=== PATIENT | female | born 2000 | race Caucasian/White ===

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

== ENCOUNTER → 2022-02-07 09:40 | Outpatient (CLI) | payer OTHER, SELFPAY ==
[2022-02-07 10:08] LABS: Glucose,Fasting 89 mg/dl (74-100)
[2022-02-07 11:39] LABS: Glucose 1 Hour 131 mg/dL (74-100)
== END ==
PROVIDERS: Visit Provider Nurse Practitioner Obstetrics & Gynecology
DX: Z34.90 Encounter for supervision of normal pregnancy, unspecified, unspecified trimester (principal)
CPT/HCPCS: 36415; 82951

== ENCOUNTER → 2022-04-16 13:02 | Outpatient (CLI) | payer OTHER, SELFPAY ==
--- NOTE | 2022-04-16 13:04 | US_ITS ---
FINAL REPORT CLINICAL HISTORY: BPP FINDINGS: TRANSABDOMINAL ULTRASOUND There is a single live intrauterine gestation. Presentation is vertex. The cervix is not well visualized but estimated at 3.1 cm in length. Placenta is posterior. Cardiac activity is confirmed at 136 bpm. Fetus is active and practice breathing is seen. BIJAN: 11.7 cm MEASUREMENTS: ULTRASOUND AGE: 34 weeks 2 days. GESTATION AGE: 36 weeks 3 days. ESTIMATED WEIGHT: 2556 g GROWTH PERCENTILE: 17% based on LMP and 65% based on AUA BPD: 8.2 cm corresponding with 32 weeks 6 days. OFD: 10.7 cm corresponding with 33 weeks 6 days. HC: 29.8 cm corresponding with 33 weeks 0 days. AC: 31.8 cm corresponding with 35 weeks 5 days. FL: 6.9 cm corresponding with 35 weeks 2 days. HC/AC: 0.94 CI: 77% FL/BPD: 84% FL/AC: 22% BREATHIN/2 MOVEMENT: 2/2 TONE: 2/2 FLUID VOLUME: 2/2 BPP SCORE: 8/8 IMPRESSION: 1. BPP SCORE: 8/8. 2. BIJAN 11.7 cm. 3. Limited evaluation of the cervix. Consider transvaginal imaging if an accurate measurement of the cervix is needed. Reviewed, Interpreted and Dictated by Jade Carey MD Transcribed by Rafaela Francisco Authenticated and . [facility]
== END ==
PROVIDERS: PCP Nurse Practitioner Family; Visit Provider Nurse Practitioner Obstetrics & Gynecology
DX: O36.5990 Maternal care for other known or suspected poor fetal growth, unspecified trimester, not applicable or unspecified (principal)
CPT/HCPCS: 76811; 76819; 76820; 86403

== ENCOUNTER → 2022-04-16 16:37 | Outpatient (CLI) | payer OTHER, SELFPAY | PROVIDERS: Visit Provider Nurse Practitioner Obstetrics & Gynecology | DX: Z34.90 Encounter for supervision of normal pregnancy, unspecified, unspecified trimester (principal) ==

== ENCOUNTER → 2022-05-03 10:23 | Outpatient (CLI) | payer OTHER, SELFPAY ==
[2022-05-03 11:28] LABS: Basophils # 0.1 K/mm3 (0-0.2); Basophils % 0.4 % (0.1-2.0); Eosinophils # 0.1 K/mm3 (0.0-0.4); Eosinophils % 0.8 % (0.1-12.0); Hematocrit 39.2 % (37.0-47.0); Hemoglobin 12.6 g/dL (12.2-16.2); Lymphocytes # 2.3 K/mm3 (0.7-4.5); Lymphocytes % 20.7 % (10-50); Mean Corpuscular HGB Conc 32.2 g/dL (31.8-35.4); Mean Corpuscular Hemoglobin 29.2 pg (27.0-31.2); Mean Corpuscular Volume 90.6 fl (81-99); Monocytes # 0.4 K/mm3 (0.1-1.0); Monocytes % 3.3 % (1.7-9.3); Neutrophils # 8.5 K/mm3 (1.8-7.8); Neutrophils % 74.8 % (37.0-80.0); Platelet Count 186 K/mm3 (142-424); Red Blood Count 4.33 M/mm3 (4.20-5.40); White Blood Count 11.3 K/mm3 (4.5-13.0)
[2022-05-03 11:41] LABS: Alanine Aminotransferase 12 U/L (12-78); Albumin Level 3.3 g/dl (3.5-5.0); Albumin/Globulin Ratio 1.4 (1.1-1.8); Alkaline Phosphatase 213 U/L (38-126); Aspartate Amino Transferase 21 U/L (14-36); Blood Urea Nitrogen 7 mg/dl (7-17); Calcium 9.1 mg/dl (8.4-10.2); Carbon Dioxide 24 mmol/L (22.0-30.0); Chloride 108 mmol/L (98-107); Estimated Glomerular Filt Rate 127 ml/min (>60); GFR (African American) 154 ML/MIN (>60); Globulin 2.4 g/dL (1.3-3.2); Glucose 92 mg/dl (74-100); Sodium 136 mmol/L (136-145); Total Protein,Serum 5.7 g/dl (6.3-8.2)
[2022-05-03 11:51] LABS: Bilirubin,Total < 0.1 mg/dl (0.2-1.3)
== END ==
PROVIDERS: PCP Nurse Practitioner Family; Visit Provider Nurse Practitioner Obstetrics & Gynecology
DX: Z34.90 Encounter for supervision of normal pregnancy, unspecified, unspecified trimester (principal); N92.0 Excessive and frequent menstruation with regular cycle
CPT/HCPCS: 36415; 80053; 85025; C9803; U0003; U0005

== ENCOUNTER 2022-05-05 04:44 | Inpatient (IN) | payer OTHER, SELFPAY ==
[2022-05-05] VITALS (14 sets, daily range): BP systolic 98–129; BP diastolic 40–80; PULSE 78–150; RESP 16–18; TEMP 36.3–36.8; O2SAT 98–100; BMI 33.1
[2022-05-05 05:34] LABS: Basophils # 0.1 K/mm3 (0-0.2); Basophils % 0.8 % (0.1-2.0); Eosinophils # 0.1 K/mm3 (0.0-0.4); Eosinophils % 1.1 % (0.1-12.0); Hematocrit 37.1 % (37.0-47.0); Hemoglobin 12.3 g/dL (12.2-16.2); Lymphocytes # 3.2 K/mm3 (0.7-4.5); Lymphocytes % 25.5 % (10-50); Mean Corpuscular HGB Conc 33.2 g/dL (31.8-35.4); Mean Corpuscular Hemoglobin 28.5 pg (27.0-31.2); Mean Corpuscular Volume 85.9 fl (81-99); Mean Platelet Volume 10.5 fl (7.4-10.4); Monocytes # 0.4 K/mm3 (0.1-1.0); Monocytes % 3.3 % (1.7-9.3); Neutrophils # 8.7 K/mm3 (1.8-7.8); Neutrophils % 69.3 % (37.0-80.0); Platelet Count 199 K/mm3 (142-424); Red Blood Count 4.32 M/mm3 (4.20-5.40); Red Cell Distribution Width 14.9 % (11.5-17.5); White Blood Count 12.6 K/mm3 (4.5-13.0)
[2022-05-05 05:35] LABS: Coronavirus 19, PCR Not Detected (NotDetected); Influenza A, PCR Not Detected (NotDetected); Influenza B, PCR Not Detected (NotDetected)
[2022-05-05 05:35] LABS: Microscopic, Urine URINE MICROSCOPIC (MICROSCOPIC)
[2022-05-05 05:45] LABS: Anion Gap 8.9 mEq/L (5-15); Blood Urea Nitrogen 9 mg/dl (7-17); Calcium 8.7 mg/dl (8.4-10.2); Carbon Dioxide 21 mmol/L (22.0-30.0); Chloride 109 mmol/L (98-107); Creatinine Clearance Estimated 176 mL/min (50-200); Estimated Glomerular Filt Rate 127 ml/min (>60); GFR (African American) 154 ML/MIN (>60); Glucose 81 mg/dl (74-100); Potassium 3.9 mmoL/L (3.5-5.1); Sodium 135 mmol/L (136-145)
[2022-05-05 05:55] LABS: Amphetamine/Metha Screen,Urine Negative ng/ml (<1000); Barbiturates Screen,Urine Negative ng/ml (<200); Benzodiazepines Screen,Urine Negative ng/ml (<200); Cannabinoid Screen,Urine Negative ng/ml (<50); Cocaine Screen,Urine Negative ng/ml (<300); Methadone Screen,Urine Negative ng/ml (<300); Opiate Screen,Urine Negative ng/ml (<300); Phencyclidine Screen,Urine Negative ng/ml (<25)
[2022-05-05 06:03] LABS: Appearance,Urine CLEAR (Clear); Bilirubin,Urine Negative (Negative); Blood, Urine Negative (Negative); Color,Urine YELLOW (Yellow); Glucose,Urine (UA) Negative (Negative); Ketones,Urine Negative (Negative); Leukocyte Esterase,Urine 1+ (Negative); Nitrate,Urine Negative (Negative); PH,Urine 6.5 (5.0-8.5); Protein,Urine Negative (Negative); Urobilinogen,Urine 0.2 EU/dl (0.2)
[2022-05-05 06:08] LABS: WBC,Urine 20-50 #/hpf (0-3)
--- NOTE | 2022-05-05 07:15 | HMH.ANESCL ---
[facility] Anesthesia Checklist - Patient Identification Patient Identification: Arm Band - Structural Data Admitted From: Home Planned Operative Procedure/s: Repeat C/S Consent for Planned Operative Procedure(s) Verified: Yes Verified Documents: Surgical Consent, History and Physical - Additional verifications Anesthesia Reactions: No - Airway Assessment C-Spine Mobility Assessed: Yes TMJ Mobility Assessed: Yes Dentition: Poor Dentition - Neurological Assessment Level of Consciousness: Awake, Alert - Anesthesia Plan Anesthesia Risk discussed: Yes Anesthesia Plan: Verified ASA Class: II Anesthesia Type: Spinal (with Bilateral TAP Block) [facility] History I have reviewed the patient's past medical history: Yes *Have you ever received a pneumonia vaccine?: No *Have you received a flu vaccine this season?: No Anesthesia experience/problems:: nac Other Surgeries: Yes: Amputation: No Fractures: No - *Social History Smoking Status: Never smoker Alcohol Intake: never Alcohol Intake Frequency:: other Substance Use Type: denies use *Occupational Status:: unemployed Housing: house Household Members: family *Travel in the last 8 weeks: None Family Hx:: No significant family history Para: 1
--- NOTE | 2022-05-05 07:27 | HMH.PHAINT ---
MEDICATION RECONCILIATION COMPLETED ON PATIENT USING EXTERNAL FILL HISTORY FROM PHARMACY. -HARJIT PATEL, [place]
--- NOTE | 2022-05-05 08:30 | HMH.OPNOTE ---
Date of procedure: 05/05/22 Pre-op Diagnosis:: Term , previous section, Post-op Diagnosis:: Term , previous section, left hydatid of morganii Procedure performed:: Repeat lower segment transverse section Surgeon:: Sesar Cardona MD Clay Mixer(s):: Dr. RUIZ MAILING MANAGER:: Other (Kevon Quinonez) Anesthesia: spinal Estimated blood loss (mL): 400 Clinical Note:: She is a 22-year-old 2 para 1 at 39 weeks gestational age. She had a previous section and I was a result of that was offered repeat lower segment transverse section at term. The risks and benefits of surgery were discussed with the patient prior to surgery. Operative findings:: She delivered a liveborn female child at 7:52 AM on the morning of May 05, 2022. The Apgars were 9 at 1 minute and 9 at 5 minutes. The baby weighed 7 pounds 7 ounces. Ovaries appeared normal on the left tube there was a 2 cm long oval-shaped hydatid of morganii near the distal end. The rest of the pelvis appeared normal. Operative note:: She was taken to the operating room where spinal anesthesia was found be adequate. She was prepped and draped in normal sterile fashion in the supine position with a leftward tilt. A [place] catheter was in the bladder. A Pfannenstiel skin incision was made with knife then carried through to the underlying layer of fascia with cautery. The fascia was opened in the midline with cautery and extended laterally using Garcia scissors. [place] clamps were applied to the superior aspect of the fascial incision which was tented up and the underlying rectus muscles dissected off using cautery. The [place] clamps were then applied to the inferior aspect of the fascial incision which in a similar fashion was tented up and the underlying rectus muscles dissected off using cautery. The rectus muscles were then in the midline, the peritoneum identified, and entered sharply with Metzenbaum scissors. This incision was then extended superiorly and inferiorly with cautery. We had good visualization of the bladder inferiorly. The bladder peritoneum was then opened in the midline and extended laterally using Metzenbaum scissors. An Arnie retractor was then inserted into the abdominal cavity. A bladder flap was created digitally. Transverse incision was made through the uterine muscle to the amnion. This incision was then extended laterally using fingers traction. The amnion was entered sharply with knife. There was clear amniotic fluid. The 's head was then delivered atraumatically. This was followed by the anterior shoulder and the rest of the 's body atraumatically. The oropharynx and nasopharynx were bulb suctioned. The baby was vigorous so we allowed the cord to continue to pulsate for approximately 1 minute. The cord was then doubly clamped and cut. The infant was then handed off to Dr. Whelan who assigned Apgars of 9 at 1 minute and 9 at 5 minutes. We then obtained cord blood. Using gentle traction on the cord and countertraction on the fundus I was able to easily deliver the placenta intact. It had a normal three-vessel cord. The uterus was then cleared of clots and debris . There was a small downward tear on the left side of the incision and I elected to close this first with running locked Vicryl suture. The uterine incision was then closed using running 0 Vicryl suture in a locked fashion. A second layer of the same suture was used to imbricate the first layer. The bladder peritoneum was then closed using running 2-0 Vicryl suture in a locked fashion. I placed half a piece of Gelf[place]am in the left lower quadrant into the bladder peritoneum. The gutters and cul-de-sac were then cleared of clots and debris . Once again hemostasis was assured. The Arnie retractor was then removed from the abdominal cavity. Once again hemostasis was assured. The peritoneum was grasped with Sandra clamps and closed using runn
--- NOTE | 2022-05-05 08:39 | HMH.OBAPHP ---
OB - H&P: HPI Antepartum - History of Present Illness Chief complaint: Term , previous section History of present illness: She is a 22-year-old 1 para 0 at 39 weeks gestational age. She is had a previous section and as result of that was offered repeat lower segment transverse section at term. The risks and benefits of surgery were discussed with the patient prior to surgery. - History of Present Criteria for establishing EDC:: LMP confirmed by 1st trimester US care: good care Ultrasounds: normal 1st trimester US, normal mid trimester US Obstetrical complications: none, previous Medical complications: none - Labs Blood type: O (+) positive Rubella: immune RPR/VDRL: nonreactive GBS status: negative HBsAG: negative [facility] History I have reviewed the patient's past medical history: Yes *Have you ever received a pneumonia vaccine?: No *Have you received a flu vaccine this season?: No Anesthesia experience/problems:: nac Other Surgeries: Yes: No Previous Surgery, Amputation: No Fractures: No - *Social History Smoking Status: Never smoker Alcohol Intake: never Alcohol Intake Frequency:: other Substance Use Type: denies use *Occupational Status:: unemployed Housing: house Household Members: family *Travel in the last 8 weeks: None Family Hx:: No significant family history Para: 1 Review of Systems - Review of Systems Review of systems:: pertinent systems reviewed and negative unless documented below Meds Home Medications Medication Instructions Recorded Confirmed Type pediatric multivitamin no.7-folic 100 mcg PO DAILY 09/20/21 05/05/22 History acid 100 mcg chewable tablet Ferrous Sulfate 325 mg PO DAILY 05/05/22 05/05/22 History Allergies Allergy/AdvReac Type Severity Reaction Status Date / Time pineapple Allergy Verified 04/30/22 13:05 OB - H&P: Exam - Physical Exam Vital signs: Temp Pulse Resp BP Pulse Ox 98.0 F 78 17 120/68 99 05/05/22 05:05 05/05/22 05:05 05/05/22 05:05 05/05/22 05:05 05/05/22 05:05 - Constitutional no acute distress - Routine HEENT Exam Head: Present: normocephalic Eye: Present: EOMI, PERRL ENT: Present: mucous membranes moist - Routine Neck Exam Present: supple, full ROM - Routine Respiratory Exam Absent: accessory muscle use (good air entry bilaterally), respiratory distress, wheezes, crackles - Routine Cardiovascular Exam Present: RRR. Absent: murmur - Routine Abdominal Exam Present: soft, normoactive bowel sounds. Absent: tenderness, distended, guarding - Routine Rectal Exam Patient deferred: visual exam, digital exam - Routine Exam Patient deferred: external exam, groin exam, perineal exam - Routine Extremities Exam Present: full ROM. Absent: cyanosis, edema - Routine Skin Exam Present: intact. Absent: cyanosis - Routine Neurological Exam Present: alert, oriented X3 - Routine Psychiatric Exam Present: normal affect OB - Results - Labs Labs: Short CBC 05/05/22 Range/Units 05:25 WBC 12.6 (4.5-13.0) K/mm3 Hgb 12.3 (12.2-16.2) g/dL Hct 37.1 (37.0-47.0) % Plt Count 199 (142-424) K/mm3 BMP 05/05/22 05:25 Sodium 135 L Potassium 3.9 D Chloride 109 H Carbon Dioxide 21 L BUN 9 D Creatinine 0.60 Glucose 81 Calcium 8.7 Urine 05/05/22 Range/Units 05:20 Urine Color Yellow (Yellow) Urine Appearance Clear (Clear) Urine pH 6.5 (5.0-8.5) Ur Specific [place] 1.010 (1.005-1.030) Urine Protein Negative (Negative) Urine Glucose (UA) Negative (Negative) OB - A/P Antepartum (1) Delivery by section of full-term Status: Acute (2) History of Status: Chronic - Additional Plan Planning to breastfeed?: No Plan: other Additional Information:: She is admitted at term for a repeat lower segment transverse cesa
--- NOTE | 2022-05-05 08:40 | P.PN_ITS ---
[facility] Anesthesia Record Part I Intake, IV Amount: 1,000 Estimated blood loss (mL): 400 Urine output (mL): 150 Blood Pressure: 104/80 SaO2: 99 Pulse Rate: 137 Respiratory Rate: 16 Temperature: 97.3 F Patient is:: Awake Stable to PACU at:: 08:33
--- NOTE | 2022-05-05 09:35 | HMH.ACPN2 ---
Internal Medicine - PN: Subj *Date: 05/05/22 *Time: 09:35 Interval history: Noted that she is quite tachycardic in the recovery room. She dropped her blood pressure to 98/50. She passed a couple of large clots. Approximately 500 cc of blood loss. I examined the patient and there was blood clots in the uterus. I removed all the clots from the uterus. I inserted a EVELYNE RI balloon with 120 cc of saline. This seemed to stop her bleeding. She also received Methergine and we will continue with the IV oxytocin. She is hemodynamically stable at this point in time and we will continue with the oxytocin for the next 24 hours. We will keep the balloon device in the uterus for the next 24 hours as well. We will monitor her blood loss. She has a stat H&H as well as a second IV started. Exam Vital signs and Labs for Last 24 Hours: Temp Pulse Resp BP Pulse Ox 97.3 F L 137 H 16 104/80 L 99 05/05/22 08:40 05/05/22 08:40 05/05/22 08:40 05/05/22 08:40 05/05/22 05:05 Laboratory Results - last 24 hr 05/05/22 05:20: Urine Color Yellow, Urine Appearance Clear, Urine pH 6.5, Ur Specific [place] 1.010, Urine Protein Negative, Urine Glucose (UA) Negative, Urine Ketones Negative, Urine Blood Negative, Urine Nitrate Negative, Urine Bilirubin Negative, Urine Urobilinogen 0.2, Ur Leukocyte Esterase 1+ A, Urine WBC 20-50, Ur Squamous Epith Cells 10-20 05/05/22 05:20: Urine Opiates Screen Negative, Urine Methadone Screen Negative, Ur Barbituates Screen Negative, Ur Phencyclidine Scrn Negative, Ur Amphetamines Screen Negative, U Benzodiazepines Scrn Negative, Urine Cocaine Screen Negative, U Marijuana (THC) Screen Negative 05/05/22 05:25: WBC 12.6, RBC 4.32, Hgb 12.3, Hct 37.1, MCV 85.9, MCH 28.5, MCHC 33.2, RDW 14.9, Plt Count 199, MPV 10.5 H, Neut % (Auto) 69.3, Lymph % (Auto) 25.5, [place] % (Auto) 3.3, Eos % (Auto) 1.1, Baso % (Auto) 0.8, Neut # (Auto) 8.7 H, Lymph # (Auto) 3.2, [place] # (Auto) 0.4, Eos # (Auto) 0.1, Baso # (Auto) 0.1 05/05/22 05:25: Sodium 135 L, Potassium 3.9 D, Chloride 109 H, Carbon Dioxide 21 L, Anion Gap 8.9, BUN 9 D, Creatinine 0.60, Estimated Creat Clear 176, Estimated GFR 127, Est GFR ( Amer) 154, Glucose 81, Calcium 8.7 05/05/22 05:25: SARS-CoV-2 (PCR) Not detected, Influenza A Untype (PCR) Not detected, Influenza Type B (PCR) Not detected 05/05/22 05:25: Blood Type O Positive, Antibody Screen Negative I & O for Last 24 hours: Intake & Output 05/02/22 05/03/22 05/04/22 05/05/22 11:59 11:59 11:59 11:59 Intake Total 1000 / 1000 Balance 1000 / 1000 Weight 164 lb - Constitutional no acute distress Assessment and Plan (1) Delivery by section of full-term Status: Acute Category: Medical Code(s): O82 - Encounter for delivery without indication (2) History of Status: Chronic Category: Surgical Code(s): Z98.891 - History of uterine scar from previous surgery (3) hemorrhage Status: Acute Category: Medical Code(s): O72.1 - Other immediate hemorrhage - Assessment and plan all Dx Assessment and Plan for all problems:: After evacuating the clots from the uterus the uterus is now well contracted. I have inserted a balloon catheter into the uterus. We will continue to monitor her blood loss but the vaginal bleeding has significantly settled. She did receive Methergine and will continue to receive IV oxytocin. We will leave the balloon catheter in until tomorrow. We will continue to watch her vital signs as well as her blood loss closely. Interestingly at the end of the case when I pressed on her uterus there was no vaginal bleeding at all. She is hemodynamically stable now. Blood pressures are normal. Heart rate is still elevated but it was elevated throughout the entire case.
[2022-05-05 09:37] LABS: Hematocrit 37.5 % (37.0-47.0); Hemoglobin 12.3 g/dL (12.2-16.2)
--- NOTE | 2022-05-05 09:43 | PC.NURSE ---
[id number] at bedside, manually evacuating clots, jerrell inserted per
--- NOTE | 2022-05-05 10:00 | SUR.PHASEI ---
1000-spoke to Dr Cardona via phone to update him on pt. Pt resting, VSS at this time. HR 101, BP 125/94, Bakri still in place, bleeding at this time scant to small with no large clots
--- NOTE | 2022-05-05 11:30 | HMH.ACPN2 ---
Internal Medicine - PN: Subj *Date: 05/05/22 *Time: 11:30 Interval history: She continues to have vaginal bleeding. I replaced her back really and despite this she continued to bleed around the battery. She continues to trickle a small amount. I had increased the amount of fluid in the bakri to 240 cc and yet still she was trickling. There is about 400 cc of blood in the BAKRI bag. As result of this we elected to take her back to the operating room and check her bleeding. I will do a B glass suture as well as reopen her incision in the uterus and see if there is any internal bleeding within the uterine cavity. Exam Vital signs and Labs for Last 24 Hours: Temp Pulse Resp BP Pulse Ox 97.3 F L 121 H 16 129/66 100 05/05/22 08:40 05/05/22 08:43 05/05/22 08:43 05/05/22 08:43 05/05/22 08:43 Laboratory Results - last 24 hr 05/05/22 05:20: Urine Color Yellow, Urine Appearance Clear, Urine pH 6.5, Ur Specific [place] 1.010, Urine Protein Negative, Urine Glucose (UA) Negative, Urine Ketones Negative, Urine Blood Negative, Urine Nitrate Negative, Urine Bilirubin Negative, Urine Urobilinogen 0.2, Ur Leukocyte Esterase 1+ A, Urine WBC 20-50, Ur Squamous Epith Cells 10-20 05/05/22 05:20: Urine Opiates Screen Negative, Urine Methadone Screen Negative, Ur Barbituates Screen Negative, Ur Phencyclidine Scrn Negative, Ur Amphetamines Screen Negative, U Benzodiazepines Scrn Negative, Urine Cocaine Screen Negative, U Marijuana (THC) Screen Negative 05/05/22 05:25: WBC 12.6, RBC 4.32, Hgb 12.3, Hct 37.1, MCV 85.9, MCH 28.5, MCHC 33.2, RDW 14.9, Plt Count 199, MPV 10.5 H, Neut % (Auto) 69.3, Lymph % (Auto) 25.5, [place] % (Auto) 3.3, Eos % (Auto) 1.1, Baso % (Auto) 0.8, Neut # (Auto) 8.7 H, Lymph # (Auto) 3.2, [place] # (Auto) 0.4, Eos # (Auto) 0.1, Baso # (Auto) 0.1 05/05/22 05:25: Sodium 135 L, Potassium 3.9 D, Chloride 109 H, Carbon Dioxide 21 L, Anion Gap 8.9, BUN 9 D, Creatinine 0.60, Estimated Creat Clear 176, Estimated GFR 127, Est GFR ( Amer) 154, Glucose 81, Calcium 8.7 05/05/22 05:25: SARS-CoV-2 (PCR) Not detected, Influenza A Untype (PCR) Not detected, Influenza Type B (PCR) Not detected 05/05/22 05:25: Blood Type O Positive, Antibody Screen Negative, Crossmatch (AHG) See Detail 05/05/22 09:30: Hgb 12.3, Hct 37.5 I & O for Last 24 hours: Intake & Output 05/02/22 05/03/22 05/04/22 05/05/22 11:59 11:59 11:59 11:59 Intake Total 1000 / 1000 Balance 1000 / 1000 Weight 164 lb - Constitutional no acute distress - *Routine HEENT Exam Head: Present: normocephalic Eye: Present: EOMI, PERRL ENT: Present: mucous membranes moist Assessment and Plan (1) Delivery by section of full-term infant Status: Acute Category: Medical Code(s): O82 - Encounter for delivery without indication (2) History of Status: Chronic Category: Surgical Code(s): Z98.891 - History of uterine scar from previous surgery (3) hemorrhage Status: Acute Category: Medical Code(s): O72.1 - Other immediate hemorrhage - Assessment and plan all Dx Assessment and Plan for all problems:: She continues to have bleeding postoperatively from the vagina. The incision is clean and dry. There is no evidence of internal bleeding since her belly is not distended in any way. She continues to have good urine output. Despite receiving IV oxytocin, Methergine and a balloon catheter within the uterine cavity she continues to have bleeding. We will go ahead and do an exploratory laparotomy. We discussed the risks of surgery that includes bleeding, infection, injury to other structures. We discussed the rare risk of hysterectomy. All questions were answered and consents were signed.
[2022-05-05 11:38] LABS: Hematocrit 33.8 % (37.0-47.0); Hemoglobin 11.6 g/dL (12.2-16.2)
--- NOTE | 2022-05-05 13:02 | HMH.ACPN2 ---
Internal Medicine - PN: Subj *Date: 05/05/22 *Time: 12:30 Interval history: I checked on her again and her bleeding seems to be significantly improved. She still has a small amount of blood with pressing on the uterus but the uterus has not gotten any bigger. It seems to be well contracted. The amount of bleeding that she has is about the size of a tennis ball on the nino. There are no clots coming out there was just a small trickle. As result of that we are continuing to observe her. She is in the preop area but at this point in time I do not want to take her back to the operating room since the bleeding has significantly improved. She has a intra uterine balloon catheter that seems to be doing well. Her last hemoglobin was 11.3 at 1130. Exam Vital signs and Labs for Last 24 Hours: Temp Pulse Resp BP Pulse Ox 97.3 F L 101 H 16 123/73 100 05/05/22 08:40 05/05/22 10:10 05/05/22 10:10 05/05/22 10:10 05/05/22 10:10 Laboratory Results - last 24 hr 05/05/22 05:20: Urine Color Yellow, Urine Appearance Clear, Urine pH 6.5, Ur Specific [place] 1.010, Urine Protein Negative, Urine Glucose (UA) Negative, Urine Ketones Negative, Urine Blood Negative, Urine Nitrate Negative, Urine Bilirubin Negative, Urine Urobilinogen 0.2, Ur Leukocyte Esterase 1+ A, Urine WBC 20-50, Ur Squamous Epith Cells 10-20 05/05/22 05:20: Urine Opiates Screen Negative, Urine Methadone Screen Negative, Ur Barbituates Screen Negative, Ur Phencyclidine Scrn Negative, Ur Amphetamines Screen Negative, U Benzodiazepines Scrn Negative, Urine Cocaine Screen Negative, U Marijuana (THC) Screen Negative 05/05/22 05:25: WBC 12.6, RBC 4.32, Hgb 12.3, Hct 37.1, MCV 85.9, MCH 28.5, MCHC 33.2, RDW 14.9, Plt Count 199, MPV 10.5 H, Neut % (Auto) 69.3, Lymph % (Auto) 25.5, [place] % (Auto) 3.3, Eos % (Auto) 1.1, Baso % (Auto) 0.8, Neut # (Auto) 8.7 H, Lymph # (Auto) 3.2, [place] # (Auto) 0.4, Eos # (Auto) 0.1, Baso # (Auto) 0.1 05/05/22 05:25: Sodium 135 L, Potassium 3.9 D, Chloride 109 H, Carbon Dioxide 21 L, Anion Gap 8.9, BUN 9 D, Creatinine 0.60, Estimated Creat Clear 176, Estimated GFR 127, Est GFR ( Amer) 154, Glucose 81, Calcium 8.7 05/05/22 05:25: SARS-CoV-2 (PCR) Not detected, Influenza A Untype (PCR) Not detected, Influenza Type B (PCR) Not detected 05/05/22 05:25: Blood Type O Positive, Antibody Screen Negative, Crossmatch (AHG) See Detail 05/05/22 09:30: Hgb 12.3, Hct 37.5 05/05/22 11:30: Hgb 11.6 L, Hct 33.8 L I & O for Last 24 hours: Intake & Output 05/03/22 05/04/22 05/05/22 05/06/22 11:59 11:59 11:59 11:59 Intake Total 1000 / 1000 Balance 1000 / 1000 Weight 164 lb - Constitutional no acute distress - *Routine HEENT Exam Head: Present: normocephalic Eye: Present: EOMI, PERRL ENT: Present: mucous membranes moist Assessment and Plan (1) Delivery by section of full-term infant Status: Acute Category: Medical Code(s): O82 - Encounter for delivery without indication (2) History of Status: Chronic Category: Surgical Code(s): Z98.891 - History of uterine scar from previous surgery (3) hemorrhage Status: Acute Category: Medical Code(s): O72.1 - Other immediate hemorrhage - Assessment and plan all Dx Assessment and Plan for all problems:: At this point in time she seems to be stable. I will check her again in about an hour to see how she is doing. Hopefully she will have any excess bleeding and we can safely send her back to labor and delivery. We will plan to keep the intrauterine catheter in place as well as a Dacosta catheter. We will continue with her antibiotics. We will continue to monitor her blood loss. We may need to transfuse her. We will check her blood counts later this afternoon as well.
--- NOTE | 2022-05-05 14:28 | P.PN_ITS ---
[facility] Anesthesia Record Part II Discharge Time: 10:10 Destination: Obstetric PACU nurse assessment reviewed?: Yes Patient Condition:: Good Anesthesia Complications:: None Swallowing reflex intact?: Yes Cyanosis?: No Blood Pressure: 123/73 Pulse Rate: 101 Temperature: 98.3 F Mental Status: Alert & Oriented Pain level:: 0 Nausea and/or vomitting:: None Intake, IV Amount: 0
[2022-05-05 15:02] LABS: Microscopic,Cath URINE MICROSCOPIC (MICROSCOPIC)
[2022-05-05 15:28] LABS: Appearance,Urine/Cath CLEAR (Clear); Bilirubin,Cath Negative (Negative); Blood, Urine/Cath Negative (Negative); Color,Urine/Cath YELLOW (Yellow); Glucose,Urine/Cath (UA) Negative (Negative); Ketones,Urine/Cath Negative (Negative); Leukocyte Esterase,Cath 1+ (Negative); Nitrate,Cath Negative (Negative); PH,Urine/Cath 6.5 (5.0-8.5); Protein,Urine/Cath Negative (Negative); Urobilinogen,Cath 0.2 EU/dl (0.2)
[2022-05-05 15:49] LABS: Bacteria,Urine/Cath TRACE /lpf
[2022-05-05 16:16] LABS: Hematocrit 33.8 % (37.0-47.0); Hemoglobin 11.2 g/dL (12.2-16.2)
[2022-05-06 04:03] VITALS: RESP 18
[2022-05-06 07:10] LABS: Hematocrit 28.7 % (37.0-47.0)
[2022-05-06 07:39] VITALS: BP 92/53; PULSE 85; RESP 17; TEMP 36.7; O2SAT 99
--- NOTE | 2022-05-06 13:37 | P.PN_ITS ---
Internal Medicine - PN: Subj *Date: 05/06/22 *Time: 08:30 Interval history: She is doing much better this morning. She still has her balloon catheter as well as Dacosta catheter. We will remove that this morning. Her hemoglobin is 9.0. She is asymptomatic. She is not bleeding heavily from below. Exam Vital signs and Labs for Last 24 Hours: Temp Pulse Resp BP Pulse Ox 98.1 F 85 17 92/53 L 99 05/06/22 07:39 05/06/22 07:39 05/06/22 07:39 05/06/22 07:39 05/06/22 07:39 Laboratory Results - last 24 hr 05/05/22 07:38: Urine Color Yellow, Urine Appearance Clear, Urine pH 6.5, Ur Specific [place] 1.010, Urine Protein Negative, Urine Glucose (UA) Negative, Urine Ketones Negative, Urine Blood Negative, Urine Nitrate Negative, Urine Bilirubin Negative, Urine Urobilinogen 0.2, Ur Leukocyte Esterase 1+ A, Urine RBC None, Urine WBC 3-5, Ur Squamous Epith Cells 3-5, Urine Bacteria Trace 05/05/22 15:55: Hgb 11.2 L, Hct 33.8 L 05/06/22 06:50: Hgb 9.0 L D, Hct 28.7 L I & O for Last 24 hours: Intake & Output 05/04/22 05/05/22 05/06/22 05/07/22 11:59 11:59 11:59 11:59 Intake Total 1000 / 1000 0 / 0 Balance 1000 / 1000 0 / 0 Weight 164 lb Microbiology Reports for the Last 24 Hours: Microbiology 05/05/22 05:20 Urine,Clean Catch Urine Culture - Preliminary - Constitutional no acute distress - *Routine HEENT Exam Head: Present: normocephalic Eye: Present: EOMI, PERRL ENT: Present: mucous membranes moist - *Routine Abdominal Exam Present: soft, normoactive bowel sounds Comments: Her incision is clean and dry. It is nontender after the tap block. Assessment and Plan (1) Delivery by section of full-term infant Status: Acute Category: Medical Code(s): O82 - Encounter for delivery without indication (2) History of Status: Chronic Category: Surgical Code(s): Z98.891 - History of uterine scar from previous surgery (3) hemorrhage Status: Acute Category: Medical Code(s): O72.1 - Other immediate hemorrhage - Assessment and plan all Dx Assessment and Plan for all problems:: She is doing well this morning. I removed her intrauterine balloon catheter as well as her Dacosta catheter. There is minimal bleeding after removal of the catheter. We will continue her on antibiotics for another day since there was some manipulation of the balloon catheter into the endometrium. Her hemoglobin is stable and if she does well we will consider sending her home tomorrow. She is bottlefeeding.
--- NOTE | 2022-05-07 09:24 | HMH.OBDCSM ---
General - General Admission date:: 05/05/22 Discharge date: 05/07/22 HPI - History of Present Illness History of present illness: She is a 22-year-old 2 para 1 who was 39 weeks gestational age. She had a previous section and as result of that was offered repeat lower segment transverse section at term. Hospital Course Hospital Course: On May 05, 2022 she underwent a repeat lower segment transverse section. She delivered a liveborn female child at 7:52 AM. The baby weighed 7 pounds 7 ounces and was 19 inches long. She had Apgars of 9 at 1 minute and 9 at 5 minutes. She initially did well but then had some heavy bleeding. She had an intrauterine catheter placed for bleeding control and this seemed to work overnight. We left this in for 24 hours. Her hemoglobin is now 9.0. She is hemodynamically stable. She has no access blood loss. She is bottlefeeding. She has O+ blood, she is rubella immune and was group B streptococcus negative. She is discharged home to follow-up with me in approximately 2 weeks time. She will continue with her vitamins and iron. She was given the usual instructions with respect to limiting her activity, driving and sexual activity. She was given instructions with respect to wound care. She was given a prescription for Percocet 5/325 number 12 tablets. Her condition on discharge is stable and improved. Rhogam Administration: Not Indicated Objective Vital signs: Temp Pulse Resp BP Pulse Ox 98.1 F 85 17 92/53 L 99 05/06/22 07:39 05/06/22 07:39 05/06/22 07:39 05/06/22 07:39 05/06/22 07:39 no acute distress - *Routine HEENT Exam Head: Present: normocephalic Eye: Present: EOMI, PERRL ENT: Present: mucous membranes moist - *Routine Abdominal Exam Present: soft, normoactive bowel sounds. Absent: tenderness Comments: Incision is clean and dry Results Labs on day of discharge: Preliminary micro results at discharge 05/05/22 07:38 Urine Culture - Preliminary Urine,Catheterized NO GROWTH AFTER 24 HOURS DS: Diagnosis - Discharge Diagnosis (1) Delivery by section of full-term infant Status: Acute (2) History of Status: Chronic (3) hemorrhage Status: Acute Discharge Plan - Patient Discharge Instructions ACTIVITY: No heavy lifting DIET: continue same diet Additional Instructions: No tub baths or anything in the vagina for 6 weeks No heavy lifting Drink plenty of fluids Patient Instructions: Depression, Hemorrhage, DI for , DI for Pre-eclampsia, [facility] Post Discharge Instructions, Preventing the Spread of Coronavirus Discharge Instructions - Follow up Plan Follow up with: Seasr Cardona MD [Staff Physician] - Disposition: Home, Self-Care Condition at discharge:: Stable Home Medications: Home Medications Medication Instructions Recorded Confirmed Type pediatric multivitamin no.7-folic 100 mcg PO DAILY 09/20/21 05/05/22 History acid 100 mcg chewable tablet Ferrous Sulfate 325 mg PO DAILY #30 tab 05/07/22 Rx Ibuprofen [Motrin 400mg 400 mg PO Q4HP PRN #40 tab 05/07/22 Rx tablet] Oxycodone HCl/Acetaminophen 1 tab PO Q4-6H PRN #12 tablet 05/07/22 Rx [Percocet 5/325mg tablet] Prescriptions/Medication Reconciliation: New Ibuprofen [Motrin 400mg tablet] 400 mg PO Q4HP PRN #40 tab PRN Reason: Moderate Pain Oxycodone HCl/Acetaminophen [Percocet 5/325mg tablet] 1 tab PO Q4-6H PRN #12 tablet PRN Reason: Severe Pain Continued pediatric multivitamin no.7-folic acid 100 mcg chewable tablet 100 mcg PO DAILY Ferrous Sulfate 325 mg PO DAILY #30 tab - Problem Reconciliation Problems Reviewed?: Yes
== END 2022-05-07 09:45 | disposition home or self-care (01) | DRG 787 ==
PROVIDERS: Admitting Provider Nurse Practitioner Obstetrics & Gynecology; PCP Nurse Practitioner Family; Visit Provider Nurse Practitioner Obstetrics & Gynecology
PROC: 10D00Z1 Extraction of Products of Conception, Low, Open Approach (ICD-10-PCS; CPT 59514; principal; 2022-05-05 07:30)
DX: O34.211 Maternal care for low transverse scar from previous cesarean delivery (principal); O72.1 Other immediate postpartum hemorrhage; Z3A.39 39 weeks gestation of pregnancy; Z37.0 Single live birth
CPT/HCPCS: 59514; 36415; 59025; 80048; 80053; 80305; 81001; 85014; 85018; 85025; 86850; 87086; 94761; C9803; G0283; J2405; J2505; U0003; U0005

== ENCOUNTER → 2022-07-28 13:15 | Outpatient (CLI) | payer OTHER, SELFPAY ==
--- NOTE | 2022-07-28 13:27 | XR_ITS ---
FINAL REPORT CLINICAL HISTORY: foot pain FINDINGS: 3 views of the right foot were obtained. There is no acute fracture or dislocation. The joint spaces are intact. The soft tissues are unremarkable. IMPRESSION: No acute process. Reviewed, Interpreted and Dictated by Lalo Hua MD Transcribed by Alexey Lora Authenticated and [facility]
--- NOTE | 2022-07-28 13:27 | XR_ITS ---
FINAL REPORT CLINICAL HISTORY: foot pain FINDINGS: 3 views of the left foot were obtained. There is no acute fracture or dislocation. The joint spaces are intact. The soft tissues are unremarkable. IMPRESSION: No acute process. Reviewed, Interpreted and Dictated by Lalo Hua MD Transcribed by Alexey Lora Authenticated and [facility]
== END ==
PROVIDERS: PCP Nurse Practitioner Family; Visit Provider Podiatrist
DX: M79.672 Pain in left foot (principal); M79.671 Pain in right foot
CPT/HCPCS: 73630

== ENCOUNTER 2023-03-06 17:02 | Emergency (ER) | payer OTHER, SELFPAY ==
[2023-03-06 17:02] VITALS: BP 151/99; PULSE 129; RESP 20; TEMP 36.6; O2SAT 100; BMI 16.5
[2023-03-06 17:13] VITALS: BP 150/90; RESP 20
[2023-03-06 17:15] VITALS: BMI 16.5
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
[2023-03-06 18:23] VITALS: BP 119/63; PULSE 71; RESP 19; TEMP 36.8; O2SAT 98
== END 2023-03-06 18:23 | disposition home or self-care (01) ==
PROVIDERS: Emergency Provider Student in an Organized Health Care Education/Training Program; PCP Nurse Practitioner Family
DX: R51.9 Headache, unspecified (principal); V49.50XA Passenger injured in collision with unspecified motor vehicles in traffic accident, initial encounter
CPT/HCPCS: 99282; 99283

== ENCOUNTER 2023-03-07 16:03 | Emergency (ER) | payer OTHER, SELFPAY ==
[2023-03-07 16:06] VITALS: BP 102/59; PULSE 99; RESP 16; TEMP 37; O2SAT 99; BMI 16.5
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
[2023-03-07 16:30] VITALS: BP 108/67; PULSE 78; RESP 18; O2SAT 98
--- NOTE | 2023-03-07 16:37 | PC.NURSE ---
URINE COLLECTED AND SENT TO LAB
[2023-03-07 16:45] LABS: Urine Pregnancy, HCG Qual. Negative (Negative)
[2023-03-07 18:16] VITALS: BP 121/71; PULSE 81; RESP 16; TEMP 37; O2SAT 98
== END 2023-03-07 18:19 | disposition home or self-care (01) ==
PROVIDERS: Emergency Provider Emergency Medicine; PCP Nurse Practitioner Family
DX: S13.4XXA Sprain of ligaments of cervical spine, initial encounter (principal); S23.3XXA Sprain of ligaments of thoracic spine, initial encounter; V89.2XXA Person injured in unspecified motor-vehicle accident, traffic, initial encounter
CPT/HCPCS: 72072; 81025; 99283; 99284

== ENCOUNTER 2024-04-09 17:22 | Emergency (ER) | payer OTHER, SELFPAY ==
[2024-04-09 17:45] VITALS: BP 99/69; PULSE 95; RESP 19; TEMP 36.9; O2SAT 96; BMI 17.7
--- NOTE | 2024-04-09 18:25 | EXP.UTC ---
Discharge Plan Disposition Patient Disposition: Home, Self-Care Condition: Good Prescriptions Prescriptions: New erythromycin 5 mg/gram (0.5 %) ointment 1 cm ophthalmic (eye) TID 5 Days Qty: 3.5 0RF No Action medroxyprogesterone [Depo-Provera] 150 mg/mL suspension 150 mg IM [id number] Qty: 1 3RF valacyclovir [Valtrex] 1 gram tablet 1,000 mg PO DAILY 5 Days Qty: 5 5RF Referrals Follow up/Referrals: Marie Jewell APRN [Primary Care Provider] - See instructions Activity Restrictions/Add. Instructions Additional Instructions/Restrictions: contact precautions if worsen or no improvement return Clinical Impressions Clinical Impression: [place] eye disease of right eye Instructions Patient Instructions: DI for Conjunctivitis Discharge ED Provider: Princess ([facility])Juliana [facility] HPI General Stated complaint: Right red with pain no drainage Mode of Arrival: Ambulatory Source of Information: Patient Limitations: No Limitations Time Seen by Provider: 04/09/24 18:26 Description of Symptoms (Recalled from Triage Doc. by RN): PATIENT C/O REDNESS TO RIGHT EYE THAT STARTED TODAY HEENT Symptoms (Recalled from RN notes): Yes Resp Symptoms (Recalled from RN notes): No Skin Symptoms (Recalled from RN notes): No MS Symptoms (Recalled from RN notes): No Functional Status (Recalled from RN notes): WNL History of Present Illness Provider Complaint: 24 yr old female presents for Right red with pain with drainage Related Data Previous Rx's Medication Instructions Recorded medroxyprogesterone 150 mg/mL 150 mg IM [id number] #1 mL 06/24/23 intramuscular suspension (Depo-Provera) valacyclovir 1 gram tablet 1,000 mg PO DAILY 5 days #5 tabs 04/07/24 (Valtrex) erythromycin 5 mg/gram (0.5 %) eye 1 cm ophthalmic (eye) TID 5 days 04/09/24 ointment #3.5 grams Allergies Allergy/AdvReac Type Severity Reaction Status Date / Time pineapple Allergy Verified 03/04/24 10:39 Worker's Comp Is this a Worker's Comp case?: No [facility] Disclaimer: The information contained in this section may have been updated after the patient was seen, as this information can be updated by other users. 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) Smoking Status: Never smoker second hand exposure: No alcohol intake: never substance use type: denies use current occupational status: unemployed Travel in the last 8 weeks: None household members: family housing: house ROS Obtained: Yes All systems reviewed & no additional complaints except as documented Constitutional Constitutional: Reports system reviewed and no additional complaints, except as documented Eyes Eyes: Reports system reviewed and no additional complaints, except as documented, Reports as per HPI and Reports eye discharge ENT Ears, Nose, Mouth, and Throat: Reports system reviewed and no additional complaints, except as documented Cardiovascular Cardiovascular: Reports system reviewed and no additional complaints, except as documented Respiratory Respiratory: Reports system reviewed and no additional complaints, except as documented Integumentary/Breasts Skin/Breast: Reports system reviewed and no additional complaints, except as documented Neurologic Neurologic: Reports system reviewed and no additional complaints, except as documented Allergic/Immunologic Allergic/Immunologic: Reports system reviewed and no additional complaints, except as documented Physical Exam General General appearance: alert and in no apparent distress Eye Eye exam: Present normal appearance, PERRL, conjunctival redness and discharge ENT ENT exam: Present normal exam Respiratory Respiratory exam: Present normal lung sounds bilaterally Cardiovascular Cardiovascular exam: Present regular rate and normal rhythm Neurological Exam Neurological exam: Present alert and oriented X3 Skin Skin exam: Present warm and intact Medical Decision Making Medical Records Medical records reviewed: Yes I reviewed the patient's medical records. Arturo Inquiry Pt receiving controlled substance: No Arturo was queried for this patient: No Vital Signs: 04/09/24 17:45 Temperature 98.5 F Temperature Source Oral Pulse Rate [Left Brachial] 95 H Respiratory Rate 19 Blood Pressure [Left Arm] 99/69 L Blood Pressure Mean [Left Arm] 79 Blood Pressure Source [Left Arm] Automatic Cuff Blood Pressure Position [Left Arm] Sitting 02 Sat by Pulse Oximetry 96 Oxygen Delivery Method Room Air
[2024-04-09 18:32] VITALS: BP 99/69; PULSE 95; RESP 19; TEMP 36.9; O2SAT 96
== END 2024-04-09 18:34 | disposition home or self-care (01) ==
PROVIDERS: Emergency Provider Nurse Practitioner Family; PCP Nurse Practitioner Family
DX: H10.31 Unspecified acute conjunctivitis, right eye (principal)
CPT/HCPCS: 99204; 99212; G0463

== ENCOUNTER 2024-04-26 11:23 | Outpatient (CLI) | payer OTHER, SELFPAY ==
--- NOTE | 2024-04-26 11:28 | XR_ITS ---
FINAL REPORT CLINICAL HISTORY: foot pain left foot pain radiates from toes to heel COMPARISON: 07/28/2022 FINDINGS: LEFT FOOT Three views of the left foot demonstrate no acute fracture or dislocation. The visualized joint spaces are normally aligned. The soft tissues are unremarkable. IMPRESSION: No acute bony abnormality. Reviewed, Interpreted and Dictated by Jose James III, MD Transcribed by Rosey Ocampo Authenticated and [facility]
== END 2024-04-26 23:59 | disposition home or self-care (01) ==
LOC: RAD 11:25
PROVIDERS: PCP Nurse Practitioner Family; Visit Provider Nurse Practitioner
DX: M79.672 Pain in left foot (principal); M72.2 Plantar fascial fibromatosis
CPT/HCPCS: 73630

== ENCOUNTER 2024-08-06 12:07 | Emergency (ER) | payer OTHER, SELFPAY ==
[2024-08-06 12:09] VITALS: BP 122/79; PULSE 102; RESP 18; TEMP 36.9; O2SAT 100; BMI 21.2
--- NOTE | 2024-08-06 12:22 | PC.NURSE ---
DR SLADE AT BEDSIDE
[2024-08-06 12:24] LABS: Microscopic, Urine URINE MICROSCOPIC (MICROSCOPIC)
[2024-08-06 12:26] LABS: Appearance,Urine SL CLOUDY (Clear); Blood, Urine 2+ (Negative); Color,Urine YELLOW (Yellow); Glucose,Urine (UA) Negative (Negative); Ketones,Urine Negative (Negative); Leukocyte Esterase,Urine Negative (Negative); Nitrate,Urine POSITIVE (Negative); Protein,Urine 1+ (Negative); Specific Gravity, Urine >= 1.030 (1.005-1.030); Urobilinogen,Urine 0.2 EU/dl (0.2)
[2024-08-06 12:27] LABS: Urine Pregnancy, HCG Qual. Negative (Negative)
[2024-08-06 12:28] LABS: Bilirubin,Urine 1+ (Negative)
[2024-08-06 12:33] LABS: Bacteria,Urine Trace /lpf; RBC,Urine 20-50 #/hpf (0-3)
[2024-08-06 12:53] LABS: Basophils # 0.1 K/mm3 (0-0.2); Basophils % 0.7 % (0.1-2.0); Eosinophils # 0.1 K/mm3 (0.0-0.4); Eosinophils % 1.5 % (0.1-12.0); Hematocrit 39.1 % (37.0-47.0); Hemoglobin 13.7 g/dL (12.2-16.2); Lymphocytes # 2.2 K/mm3 (0.7-4.5); Lymphocytes % 28.3 % (10-50); Mean Corpuscular Hemoglobin 29.6 pg (27.0-31.2); Mean Corpuscular Volume 84.7 fl (81-99); Monocytes # 0.3 K/mm3 (0.1-1.0); Monocytes % 3.3 % (1.7-9.3); Neutrophils # 5.2 K/mm3 (1.8-7.8); Neutrophils % 66.2 % (37.0-80.0); Platelet Count 239 K/mm3 (142-424); Red Blood Count 4.61 M/mm3 (4.20-5.40); Red Cell Distribution Width 13.3 % (11.5-17.5); White Blood Count 7.8 K/mm3 (4.8-10.8)
[2024-08-06 12:59] LABS: Albumin Level 4.6 g/dl (3.5-5.0); Chloride 107 mmol/L (98-107); Potassium 4.1 mmoL/L (3.5-5.1); Sodium 141 mmol/L (136-145)
[2024-08-06 13:02] LABS: Alanine Aminotransferase 12 U/L (12-78); Alkaline Phosphatase 80 U/L (38-126); Anion Gap 13.1 mEq/L (5-15); Aspartate Amino Transferase 25 U/L (14-36); Bilirubin,Total 0.6 mg/dl (0.2-1.3); Blood Urea Nitrogen 11 mg/dl (7-17); Carbon Dioxide 25 mmol/L (22.0-30.0); Creatinine Clearance Estimated 111 mL/min (50-200); Estimated Glomerular Filt Rate 90 ml/min (>60); GFR (African American) 109 ML/MIN (>60); Globulin 2.3 g/dL (1.3-3.2); Total Protein,Serum 6.9 g/dl (6.3-8.2)
[2024-08-06 13:03] LABS: Glucose 109 mg/dl (74-100)
[2024-08-06 13:06] VITALS: BP 105/89; PULSE 88; O2SAT 100
[2024-08-06 13:15] VITALS: BP 105/66; PULSE 79; O2SAT 100
--- NOTE | 2024-08-06 13:24 | ED_ITS ---
Discharge Plan Disposition Patient Disposition: Home, Self-Care Prescriptions Prescriptions: No Action medroxyprogesterone [Depo-Provera] 150 mg/mL suspension 150 mg IM [id number] Qty: 1 2RF diclofenac sodium 1 % gel 4 g topical QID PRN (Reason: pain ) 30 Days Qty: 100 2RF Rx Instructions: apply to single, ankle, foot; for foot includes sole/toes/top of foot valacyclovir [Valtrex] 1 gram tablet 1,000 mg PO DAILY 5 Days Qty: 5 5RF Referrals Follow up/Referrals: Marie Jewell APRN [Primary Care Provider] - See instructions Activity Restrictions/Add. Instructions Additional Instructions/Restrictions: Follow-up with your [facility] as soon as possible. Please return to the emerged part with any new, concerning, worsening symptoms Clinical Impressions Clinical Impression: Vaginal bleeding Instructions Patient Instructions: DI for Urinary Tract Infection (UTI), DI for Urinary Tract Infection in Children Print Language Print Language: Tamazight Discharge ED Provider: Gabe Pruitt General Adult HPI General Chief complaint: Urogenital-Female Stated complaint: Vaginal bleeding (clots) Time Seen by Provider: 08/06/24 12:16 Mode of Arrival: Ambulatory Source of Information: Patient Limitations: No Limitations Description of Symptoms (Recalled from ER Triage Doc. by RN): vaginal bleeding. started this am. on depo shot has not had a period in a year History of Present Illness HPI narrative: This is a 24-year-old female, otherwise healthy who presents with vaginal bleeding. States that it began about 1 hour prior to arrival. Small volume. Reports lower abdominal cramping yesterday, however this has resolved. States that she is sexually active and is not sure if she is . Gets the Depo- Provera shot. Denies any other symptoms. Related Data Previous Rx's ?Medication ?Instructions ?Recorded valacyclovir 1 gram tablet 1,000 mg PO DAILY 5 days #5 tabs 04/07/24 (Valtrex) diclofenac sodium 1 % topical gel 4 g topical QID PRN pain 30 days 04/27/24 #100 grams medroxyprogesterone 150 mg/mL 150 mg IM [id number] #1 mL 06/06/24 intramuscular suspension (Depo-Provera) Allergies Allergy/AdvReac Type Severity Reaction Status Date / Time pineapple Allergy Verified 06/06/24 13:10 [facility] Disclaimer: The information contained in this section may have been updated after the patient was seen, as this information can be updated by other users. 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 On Depo-Provera for contraception HSV (herpes simplex virus) anogenital infection hemorrhage Surgical History History of Family History Other No significant family history Social History Smoking Status: Current every day smoker second hand exposure: No alcohol intake: never substance use type: denies use current occupational status: unemployed Travel in the last 8 weeks: None household members: family housing: house Other Medical History Have you received the Flu Vaccine for this season: No Have you received the Pneumonia Vaccine: No ROS Obtained: Yes All systems reviewed & no additional complaints except as documented Physical Exam General General appearance: alert and in no apparent distress Eye Eye exam: Present normal appearance, PERRL and EOMI Respiratory Respiratory exam: Present normal lung sounds bilaterally; Absent respiratory distress Cardiovascular Cardiovascular exam: Present regular rate and normal rhythm Abdominal Exam Abdominal exam: Present soft and distention; Absent tenderness, guarding or rebound Extremities Exam Extremities exam: Present normal inspection Neurological Exam Neurological exam: Present alert and oriented X3 Skin Skin exam: Present warm and dry Medical Decision Making Medical Records Medical records reviewed: Yes I reviewed the patient's medical records. Screening: Per USPSTF and CDC recommendations, given the prevalence of disease in our region, it is our hospital?s policy to screen for HIV and viral Hepatitis for all patients aged 18 and over and those with ongoing risk factors. Arturo Inquiry Pt receiving controlled substance: No Vital Signs: 08/06/24 12:09 08/06/24 13:06 08/06/24 13:15 Temperature 98.4 F Temperature Source Oral Pulse Rate 88 79 Pulse Rate [Right] 102 H Respiratory Rate 18 Blood Pressure 105/89 L 105/66 L Blood Pressure [Right Arm] 122/79 Blood Pressure Mean 92 79 Blood Pressure Mean [Right Arm] 93 Blood Pressure Source Blood Pressure Position 02 Sat by Pulse Oximetry 100 100 100 Oxygen Delivery Method Room Air Room Air Room Air 08/06/24 13:35 Temperature 98.4 F Temperature Source Oral Pulse Rate 90 Pulse Rate [Right] Respiratory Rate 18 Blood Pressure 103/58 L Blood Pressure [Right Arm] Blood Pressure Mean Blood Pressure Mean [Right Arm] Blood Pressure Source Automatic Cuff Blood Pressure Position Sitting 02 Sat by Pulse Oximetry Oxygen Delivery Method Room Air Lab Data Lab Results 08/06/24 12:21: Urine Color Yellow, Urine Appearance Sl cloudy, Urine pH 6.0, Ur Specific [place] >= 1.030, Urine Protein 1+ A, Urine Glucose (UA) Negative, Urine Ketones Negative, Urine Blood 2+ A, Urine Nitrate Positive A, Urine Bilirubin 1+ A, Urine Urobilinogen 0.2, Ur Leukocyte Esterase Negative, Urine RBC 20-50, Urine WBC None, Ur Squamous Epith Cells 3-5, Urine Bacteria Trace, Urine HCG, Qual Negative 08/06/24 12:39: WBC 7.8, RBC 4.61, Hgb 13.7, Hct 39.1, MCV 84.7, MCH 29.6, MCHC 35.0, RDW 13.3, Plt Count 239, MPV 8.0, Neut % (Auto) 66.2, Lymph % (Auto) 28.3, [place] % (Auto) 3.3, Eos % (Auto) 1.5, Baso % (Auto) 0.7, Neut # (Auto) 5.2, Lymph # (Auto) 2.2, [place] # (Auto) 0.3, Eos # (Auto) 0.1, Baso # (Auto) 0.1, Sodium 141, Potassium 4.1, Chloride 107, Carbon Dioxide 25, Anion Gap 13.1, BUN 11, Creatinine 0.80, Estimated Creat Clear 111, Estimated GFR 90, Est GFR ( Amer) 109, Glucose 109 H, Calcium 9.0, Total Bilirubin 0.6, AST 25, ALT 12, Alkaline Phosphatase 80, Total Protein 6.9, Albumin 4.6, Globulin 2.3, A lbumin/Globulin Ratio 2.0 H, HIV 1&2 Antibody Rapid Nonreactive 08/06/24 12:39 08/06/24 12:39 Orders (Tests/Meds): ORDERS Category Date Time Status CBC w/Auto Diff [Complete Blood Count Auto Diff] Stat Lab 08/06/24 12:39 Completed CMP [Comprehensive Metabolic Panel] Stat Lab 08/06/24 12:39 Completed HIV (1&2) Antibody Rapid Stat Lab 08/06/24 12:39 Completed Hep C Ab with Reflex to RNA Stat Lab 08/06/24 12:39 Received Urinalysis and Microscopic Stat Lab 08/06/24 12:21 Completed Urine , HCG Qual. Stat Lab 08/06/24 12:21 Completed Urine Culture Stat Micro 08/06/24 12:21 Received Medical Decision Narrative: In summary, this 24-year-old female otherwise healthy presents to the emergency department today with painless vaginal bleeding that began 1 hour prior to arrival. On initial evaluation patient is normotensive, nontachycardic, afebrile, no acute distress, no abdominal. Differential diagnosis includes but is not limited to , ectopic , abnormal uterine bleeding. Based on these concerns, I ordered CBC, CMP, test, urinalysis. Labs personally reviewed demonstrate white blood cell count of 7.8, unremarkable CMP, no evidence of UTI, negative test. On reassessment patient is stable condition and in no acute distress, appropriate for discharge with quick TABULAR TYPIST follow-up over the next several days. Critical Care Critical Care Time Critical Care Time: No
[2024-08-06 13:26] LABS: HIV (1&2) Antibody Rapid NONREACTIVE (NONREACTIVE)
[2024-08-06 13:35] VITALS: BP 103/58; PULSE 90; RESP 18; TEMP 36.9; O2SAT 100
[2024-08-09 05:29] LABS: HCV Ab Non Reactive (Non Reactive)
== END 2024-08-06 13:45 | disposition home or self-care (01) ==
PROVIDERS: Emergency Provider Student in an Organized Health Care Education/Training Program; PCP Nurse Practitioner Family
DX: N93.9 Abnormal uterine and vaginal bleeding, unspecified (principal); R10.30 Lower abdominal pain, unspecified
CPT/HCPCS: 80053; 81001; 81025; 85025; 86803; 87086; 87389; 99283

== ENCOUNTER 2024-10-24 10:16 | Outpatient (CLI) | payer OTHER, SELFPAY ==
--- NOTE | 2024-10-24 10:19 | XR_ITS ---
FINAL REPORT CLINICAL HISTORY: Left Foot Pain COMPARISON: 04/26/2024 FINDINGS: LEFT FOOT Three views of the left foot demonstrate no acute fracture or dislocation. The visualized joint spaces are normally aligned. The soft tissues are unremarkable. IMPRESSION: No acute bony abnormality. Reviewed, Interpreted and Dictated by Lalo Hua MD Transcribed by Rosey Ocampo Authenticated and [facility]
== END 2024-10-24 23:59 | disposition home or self-care (01) ==
LOC: RAD 10:17
PROVIDERS: PCP Nurse Practitioner Family; Visit Provider Podiatrist
DX: M79.672 Pain in left foot (principal)
CPT/HCPCS: 73630

== ENCOUNTER 2024-11-07 13:38 | Outpatient (CLI) | payer OTHER, SELFPAY ==
--- NOTE | 2024-11-07 13:39 | MR_ITS ---
FINAL REPORT TECHNIQUE: MR examination of the left foot was performed using multiplanar sequences pre and post intravenous contrast administration. CLINICAL HISTORY: evaluate soft tissue mass in the arch of foot, around distally from the 1st mtp joint COMPARISON: None FINDINGS: MRI LEFT FOOT WITH AND WITHOUT CONTRAST: No evidence of bone marrow edema, fracture, or pathologic marrow replacement is identified. The joint spaces of the foot are preserved. The Lisfranc joint and ligament are intact. There is mild subchondral edema involving the posterior aspect of the calcaneus, otherwise the bone marrow signal is unremarkable. The Achilles tendon is intact. The plantar fascia is normal in thickness and signal. There is no evidence of plantar fibromatosis, nor is there evidence of a mass along the medial plantar forefoot. Flexion and extensor tendons to the level of the toes appear intact. There is soft tissue edema in the posterior heel pad. No loculated fluid is identified. IMPRESSION: Mild subchondral marrow edema of the posterior aspect of the calcaneus, and a stress injury is not excluded. There is edema in the posterior heel pad, posttraumatic or reactive. Reviewed, Interpreted and Dictated by Jade Carey MD Transcribed by Annabelle Rothman Authenticated and [facility]
[2024-11-07] MEDS: SODIUM CHLORIDE 0.9% 10ML SYR (RAD ONLY) 10 ML IV (15:31)
[2024-11-07] MEDS: GADOTERIDOL INJ 20ML SYRINGE 12 ML IV (15:31)
== END 2024-11-07 23:59 | disposition home or self-care (01) ==
LOC: RAD 13:39
PROVIDERS: PCP Nurse Practitioner Family; Visit Provider Podiatrist
DX: M79.672 Pain in left foot (principal); M79.89 Other specified soft tissue disorders; R22.42 Localized swelling, mass and lump, left lower limb; M72.2 Plantar fascial fibromatosis
CPT/HCPCS: 73720; A9576

== ENCOUNTER 2024-11-30 12:51 | Outpatient (CLI) | payer OTHER, SELFPAY ==
[2024-11-30 13:03] VITALS: BMI 18.1
--- NOTE | 2024-11-30 13:14 | ECG_ITS ---
APPROVED REPORT Exam: Resting ECG HR:92 bpm ECG Measurements Heart Rate 92 AXES FL 121 P 81 QRSd 70 QRS 91 QT 326 T 72 QTc 375 Conclusion SINUS RHYTHM BORDERLINE RIGHT AXIS DEVIATION [QRS AXIS > 90] BORDERLINE ECG UNCONFIRMED REPORT Electronically signed by : Kevin Ramos MD 12/05/2024 08:55:02
[2024-11-30 13:22] LABS: Basophils % 0.4 % (0.1-2.0); Eosinophils # 0.1 K/mm3 (0.0-0.4); Eosinophils % 1.9 % (0.1-12.0); Hematocrit 37.9 % (37.0-47.0); Lymphocytes # 2.2 K/mm3 (0.7-4.5); Lymphocytes % 29.6 % (10-50); Mean Corpuscular HGB Conc 34.3 g/dL (31.8-35.4); Mean Corpuscular Hemoglobin 29.5 pg (27.0-31.2); Mean Corpuscular Volume 85.9 fl (81-99); Mean Platelet Volume 10.9 fl (7.4-10.4); Monocytes # 0.3 K/mm3 (0.1-1.0); Monocytes % 4.5 % (1.7-9.3); Neutrophils # 4.8 K/mm3 (1.8-7.8); Neutrophils % 63.2 % (37.0-80.0); Platelet Count 199 K/mm3 (142-424); Red Blood Count 4.41 M/mm3 (4.20-5.40); Red Cell Distribution Width 12.8 % (11.5-17.5); White Blood Count 7.5 K/mm3 (4.8-10.8)
[2024-11-30 13:43] LABS: Alanine Aminotransferase 14 U/L (12-78); Blood Urea Nitrogen 9 mg/dl (7-17); Chloride 107 mmol/L (98-107); Creatinine Clearance Estimated 117 mL/min (50-200); Estimated Glomerular Filt Rate 105 ml/min (>60); GFR (African American) 127 ML/MIN (>60); Potassium 4.3 mmoL/L (3.5-5.1); Sodium 140 mmol/L (136-145)
[2024-11-30 14:01] LABS: Albumin Level 4.9 g/dl (3.5-5.0); Albumin/Globulin Ratio 2.5 (1.1-1.8); Alkaline Phosphatase 94 U/L (38-126); Anion Gap 13.3 mEq/L (5-15); Aspartate Amino Transferase 22 U/L (14-36); Bilirubin,Total 0.5 mg/dl (0.2-1.3); Calcium 9.1 mg/dl (8.4-10.2); Carbon Dioxide 24 mmol/L (22.0-30.0); Glucose 86 mg/dl (74-100); Total Protein,Serum 6.9 g/dl (6.3-8.2)
[2024-11-30 14:51] LABS: HCG Qualitative, Serum Negative (Negative)
== END 2024-11-30 23:59 | disposition home or self-care (01) ==
LOC: PREOP 12:52
PROVIDERS: PCP Nurse Practitioner Family; Visit Provider Podiatrist
DX: Z01.812 Encounter for preprocedural laboratory examination (principal); R94.31 Abnormal electrocardiogram [ECG] [EKG]
CPT/HCPCS: 80053; 84703; 85025; 93005

== ENCOUNTER 2024-12-07 06:54 | Day surgery (SDC) | payer OTHER, SELFPAY ==
[2024-11-30 15:08] VITALS: BMI 18.1
[2024-12-07] VITALS (12 sets, daily range): BP systolic 104–129; BP diastolic 45–93; PULSE 73–88; RESP 16–26; TEMP 36.3–37.2; O2SAT 100
[2024-12-07] MEDS: LACTATED RINGERS 1000ML 1,000 ML 25 ML IV (07:30)
--- NOTE | 2024-12-07 07:50 | P.PNANES_ITS ---
[facility] Disclaimer: The information contained in this section may have been updated after the patient was seen, as this information can be updated by other users. 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 On Depo-Provera for contraception HSV (herpes simplex virus) anogenital infection hemorrhage Surgical History History of Family History Other Family history of hypertension Social History Smoking Status: Current every day smoker second hand exposure: No alcohol intake: never substance use type: denies use current occupational status: unemployed Travel in the last 8 weeks: None household members: family housing: house Have you lived/traveled outside US in past 30 days?: No Contact w/someone who lives/traveled outside US past 30 days?: No Exposure to someone with infectious disease in past 14 days?: No Do you have a fever (greater than 100.4 F or 38 C)?: No Have you tested positive for COVID-19: No Exposed to someone with COVID-19 in past 14 days?: No Do you have a sore throat?: No Do you have a cough?: No Do you have any weakness?: No Do you have any diarrhea?: No Are you experiencing any unusual bleeding?: No Do you have any muscle aches/pain?: No Do you have any abdominal pain?: No Are you experiencing loss of taste or smell?: No [facility] Anesthesia Checklist Patient Identification Patient Identification: Arm Band Structural Data Admitted From: Home Planned Operative Procedure/s: Left Foot Soft Tissue Mass Removal Consent for Planned Operative Procedure(s) Verified: Yes Verified Documents: Surgical Consent and History and Physical NPO Status Verified Time NPO: 00:00 Additional verifications Anesthesia Reactions: No Hx Blood Transfusions: No Blood Transfusion Reaction: No Airway Assessment Mallampati Score:: Class I C-Spine Mobility Assessed: Yes TMJ Mobility Assessed: Yes Dentition: Dentures-good fit (Upper dentures removed) Neurological Assessment Level of Consciousness: Awake, Alert and Appropriate Anesthesia Plan Anesthesia Risk discussed: Yes Anesthesia Plan: Verified ASA Class: II Anesthesia Type: General
[2024-12-07] MEDS: CEFAZOLIN SODIUM 2 GM in 0.9 % SODIUM CHLORIDE 100 ML IV (08:23)
[2024-12-07] MEDS: BUPIVACAINE 0.5% 30ML VIAL 150 MG (08:43)
--- NOTE | 2024-12-07 09:15 | SUR.OPER ---
family updated at this time by this RN
--- NOTE | 2024-12-07 09:26 | EXP.OP.NOTE ---
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 Recent imaging reviewed. Discussed reports was unremarkable however when I went through the images with the patient and correlated clinically there was an area which correlated to her soft tissue mass/tumor on the plantar fascia notable. MRI sagittal series 12, images 16-17 there is an out pouching which clinically correlates to a palpable STM along medial plantar fascia consistent with fibroma. The patient has tried modification of activity/shoe gear, taping, U pads to offload, inserts, ice, elevation, NSAIDs, stretching. After a long discussion with the patient in regards to the conservative versus surgical treatment for the soft tissue mass deformity, the patient has elected to proceed with surgery because they have failed conservative treatment and continue to have pain and worsening symptoms affecting daily activities. The patient has been instructed on the planned procedure, all risk versus benefits of the procedure to include bleeding, infection, nerve and blood vessel damage, need for further surgery, delay in healing of soft tissue, prolonged/permanent pain and swelling, prolonged recovery, CRPS/RSD, DVT/PE and anesthetic complications including . Discussed increased risk of wound healing complications and infection due to vaping history. Smoking/vaping cessation given. Patient understands if there is wound complications, it could lead to infection warranting oral or IV antibiotics, wound necessitating debridement. No guarantees were given. All questions fully answered. The patient verbalized understanding and agreed to proceed with surgery. Written consent was obtained. Operative findings:: Left foot callus sub hallux and sub fifth metatarsal. Sharp excisional full-thickness debridement with 15 blade through skin. No underlying ulceration noted. Left foot palpable soft tissue mass noted over the medial band of the plantar fascia centrally at the arch. Post excision left foot excision tumor subfascial over and around the plantar fascia ~1.5 x 1.1cm round. A second mass was noted just superior and lateral to the suspected plantar fibroma which appeared to be a lipoma, ~1cm round. Both excised and sent for pathology. No deep SOI noted. Operative note:: On this date and time patient was deemed an appropriate surgical candidate. With informed consent signed, the patient was taken to the operating theater. The patient was positioned supine. LMA anesthesia was induced. Tourniquet was applied to mid-calf and set at 225 mmHg. Pre-op left ankle block given with 15 cc 0.5% marcaine plain. IV Ancef given. The left extremity was prepped and draped in normal sterile fashion. Left foot callus debridment x2: 15 blade used to sharp excisionally debrided full-thickness through skin only. Did not extend to subcutaneous tissue. No ulceration noted. Left plantar fibroma excision: Attention was directed to the plantar fascia where where a 1.5 cm round fibroma was noted. Layered soft tissue dissection with care to maintain surgical hemostasis and safely track neurovascular structures. 15 blade and forceps were used to sharply excise the suspected fibroma in total. It was located directly over and around the plantar fascia. The plantar fascia was intact with no obvious tear. Left foot lipoma: Next located just superior and lateral to the fibroma, lipoma was identified in the subcutaneous tissue layer. It was excised in total and sent to pathology as specimen. No signs of infection. No nerve impingement appreciated. Wound was flushed with saline. Application of amniotic graft: Due to the extensive plantar fascia contraction, lack of subcutaneous tissue, post excision of the soft tissue masses and lipoma there was not much coverage directly over the skin. A piece of amniotic tissue was laid over the plantar fascia in order to prevent adhesions and scarring of the fascia to the thin skin. Tourniquet not utilized. Bleeding controlled. Vessels ligated with electrocautery and tied as necessary. The wounds once again flushed with copious amounts of normal sterile saline. No signs of infection. Vicryl was used to close subcutaneous tissue and a running fashion. Nylonl was then used to reapproximate the skin in a vertical mattress fashion. The wounds were cleansed. 15 cc 0.5% marcaine plain was injected at the end of the case around the incision and in an ankle block. Dermabond applied to the incisions. Xeroform, dry sterile dressing was then applied to the left foot. The patient was awoken from anesthesia and transferred to recovery with vital signs stable and neurovascular status intact. She appeared to tolerate procedure and anesthesia without complication. Materials: [facility] [employer] Amnio graft x 1 (3x8 cm) Discharge/Plan: Ok to discharge home today when vss. Patient is to maintain dressing clean dry and intact. Elevate on two pillows. Partial weight bearing to the left lower extremity with fracture boot and DME assistance (crutches, walker, rolling knee scooter). Follow up in one week as previously scheduled for incision check and dressing change. Condition: stable Disposition: same day Specimens:: Left foot plantar fibroma Left foot lipoma Complications:: None
--- NOTE | 2024-12-07 09:40 | P.PNANES_ITS ---
[facility] Anesthesia Record Part I Anesthesia Record I Intake, IV Amount: 900 Hydration: Adequate Estimated blood loss (mL): 3 Urine output (mL): 0 Blood Products used (#): none Blood Pressure: 129/45 SaO2: 100 Pulse Rate: 74 Airway Patency: Patent Respiratory Rate: 26 Temperature: 97.3 F Patient is:: Drowsy and Stable Stable to PACU at:: 09:26
--- NOTE | 2024-12-07 10:31 | P.PNANES_ITS ---
[facility] Anesthesia Record Part II Anesthesia Record Part II Discharge Time: 09:55 Destination: Surgical Day Care (OP Surgery) PACU nurse assessment reviewed?: Yes Patient Condition:: Good Anesthesia Complications:: None Swallowing reflex intact?: Yes Airway Patency: Patent Cyanosis?: No Blood Pressure: 117/75 SaO2: 100 Respiratory Rate: 16 Pulse Rate: 81 Temperature: 97.3 F Mental Status: Alert & Oriented Pain level:: 0 Nausea and/or vomitting:: None Intake, IV Amount: 0 Hydration: Adequate
== END 2024-12-07 11:00 | disposition home or self-care (01) ==
PROVIDERS: PCP Nurse Practitioner Family; Visit Provider Podiatrist
PROC: (CPT 11056; principal; 2024-12-07 08:30)
DX: M72.2 Plantar fascial fibromatosis (principal); M79.672 Pain in left foot; L84 Corns and callosities; G57.92 Unspecified mononeuropathy of left lower limb; D17.39 Benign lipomatous neoplasm of skin and subcutaneous tissue of other sites
CPT/HCPCS: 11056; 15275; C9144; J0690; J1100; J1200; J2250; J2405; J3010; J7120; Q4211

== ENCOUNTER 2025-07-21 10:51 | Outpatient (CLI) | payer OTHER, SELFPAY ==
--- OUTSIDE RECORDS SUMMARY | 2025-07-21 10:54 | XMS_ITS | Clinical Summary ---
Author Organization [facility] Address [address] [place] [address] Phone Care Team Providers Care Visual Display Manager Name Role Phone Brown Horan MD Primary Care Physician [ ] Conditions or Problems Problem Name Problem Code Onset Date Status Entry Date Provider Comment Standard Description Annotate ADHD 161652719 (SNOMED CT) Active Bronw Horan MD Attention deficit hyperactivity disorder SLEEP DISORDER 27763416 (SNOMED CT) Active Brown Horan MD Sleep disorder BEHAV- PROB LEARNING F81.9 (ICD-10-CM) Inactive Brown Horan MD Developmental disorder of scholastic skills, unspecified Medications Medication Instructions Start Date Stop Date Generic Name ND Provider ADDERALL 5 MG TABS 1 in am / 1 after lunch Dx:314.01 AMPHETAMINE-DEXTRO AMPHETAMINE [id number] Brown Horan MD ADDERALL XR 10 MG [id number] 1 in am Dx:314.01 AMPHETAMINE-DEXTRO AMPHETAMINE [id number] Brown Horan MD ADDERALL XR 10 MG [id number] 1 in am Dx:314.01 AMPHETAMINE-DEXTRO AMPHETAMINE [id number] Brown Horan MD Q-DRYL 25 MG ORAL CAPSULE 1-2 at bedtime DIPHENHYDRAMINE HCL [id number] Brown Horan MD Q-DRYL 25 MG ORAL CAPSULE 1-2 at [id number] DIPHENHYDRAMINE HCL [id number] Brown Horan MD Medications Administered No information available. Allergies, Adverse Reactions, Alerts Observed no known allergies at Results No information available. Plan of Care Type Date Detail Pending order Immunization(s) Ordered Pending order VFC FluMist Pending order VFC Flu 3 yrs an d older Pending order Flu 3 yrs and ol chanatle Pending order Hep A pediatric- adolescent dosage- 2 dose schedule Pending order IMADM THROUGH 18 YR ANY ROUTE 1ST VAC/TOXOID Pending order VFC FluMist Pending Order exclud ed from report: Pending order Immunization(s) Ordered Pending order TDaP age 7 yrs o r older Pending order IMADM THROUGH 18 YR ANY ROUTE 1ST VAC/TOXOID Pending order IMADM THROUGH 18 YR ANY ROUTE EA ADDL VAC/TOXOID Pending order Immunization(s) Ordered Pending order Varicella virus vaccine Pending order Meningococcal co njugate vaccine Pending order IMADM THROUGH 18 YR ANY ROUTE 1ST VAC/TOXOID Procedures Code Procedure Name Date Entry Date CPT-42359IQI VFC FluMist IMMORDER Immunization(s) Ordered 2012 CPT-47433TKK VFC Flu 3 yrs and older 2012 CPT-75453 Flu 3 yrs and older CPT-96434 Hep A pediatric-adolescent dosage- 2 dose schedule CPT-36186 IMADM THROUGH 18YR ANY ROUTE 1ST VAC/TOXO ID IMMORDER Immunization(s) Ordered 2012 CPT-51222 TDaP age 7 yrs or older 2012 CPT-28654 IMADM THROUGH 18YR ANY ROUTE 1ST VAC/TOXO ID CPT-02714 IMADM THROUGH 18YR ANY ROUTE EA ADDL VAC/ TOXOID IMMORDER Immunization(s) Ordered 2011 CPT-25154 Varicella virus vaccine 2011 CPT-26713 Meningococcal conjugate vaccine 4 CPT-64668 IMADM THROUGH 18YR ANY ROUTE 1ST VAC/TOXO ID Vital Signs Date Name Value Unit Description BMI (Body Mass Index) 15.15 kg/m2 Bod y Mass Index (Ratio) BP Diastolic 75 mm[Hg] blood pressu re, diastolic BP Systolic 111 mm[Hg] blood pressur e, systolic Heart Rate 101 /min pulse rate Height 61 [in_us] height E&M Height 154.94 cm height in cent imeters E&M Weight Measured 79.90 [lb_av] weight E& M Weight Measured 79.90 [lb_av] weight E& M Weight Measured 36.32 kg weight in kilograms E&M Body Temperature 98.1 [degF] temperat ure E&M Body Temperature 36.7 Chelsey temperat ure in centigrade E&M BSA (Body Surface Area) 1.15 b [place] surface area Immunizations Vaccine Administration Date Standard Description CVX Co de Dose mmr #2 03 Unknown pneuped#2 109 Unknown mmr #1 03 Unknown ipv #4 10 Unknown ipv #3 10 Unknown pneuped#3 109 Unknown ipv #2 10 Unknown ipv #1 10 Unknown pneumped1 133 Unknown hib #1 17 Unknown dtap #2 20 Unknown hib #3 17 Unknown dtap #4 20 Unknown dtap #5 20 Unknown dtap #3 20 Unknown varicella#1 21 Unknown hib #2 17 Unknown dtap #1 20 Unknown varicella#2 21 Unknown hepbvax#1 45 Unknown hepbvax#3 45 Unknown hepbvax#2 45 Unknown tb-ppd -1 Unknown hepavax #1 85 Unknown flu vax#1 141 Unknown tdap vax 115 0.0 meningoc vax 32 Unknown meningoc vax 32 0.0 Advance Directives No information available.
--- NOTE | 2025-07-21 11:00 | US_ITS ---
FINAL REPORT CLINICAL HISTORY: left plantar foot lobulated soft tissue mass FINDINGS: Limited sonographic images were obtained of the soft tissues in the plantar left foot of the area of reported palpable abnormality. There appears to be a large lobular soft tissue mass in the subcutaneous soft tissues of the plantar aspect of the foot. This measures 4.0 x 0.7 cm and is hypoechoic. IMPRESSION: Hypoechoic soft tissue mass plantar left foot. Recommend MRI to better characterize. Reviewed, Interpreted and Dictated by Lalo Hua MD Transcribed by Rosey Ocampo Authenticated and [facility]
--- NOTE | 2025-07-21 11:05 | XR_ITS ---
FINAL REPORT CLINICAL HISTORY: evaluate left foot pain/soft tissue mass COMPARISON: None FINDINGS: LEFT FOOT Three views of the left foot demonstrate no acute fracture or dislocation. The visualized joint spaces are normally aligned. The soft tissues are unremarkable. IMPRESSION: No acute bony abnormality. Reviewed, Interpreted and Dictated by Lalo Hua MD Transcribed by Rosey Ocampo Authenticated and [facility]
[2025-07-21 11:32] LABS: Hematocrit 40.2 % (37.0-47.0); Hemoglobin 13.6 g/dL (12.2-16.2); Immature Granulocytes % 0.3 %; Mean Corpuscular HGB Conc 33.8 g/dL (31.8-35.4); Mean Corpuscular Hemoglobin 29.7 pg (27.0-31.2); Mean Corpuscular Volume 87.8 fl (81-99); Nucleated Red Blood Cells % 0 %; Platelet Count 207 K/mm3 (142-424); Red Blood Count 4.58 M/mm3 (4.20-5.40); Red Cell Distribution Width-SD 38.9 fL; White Blood Count 7.6 K/mm3 (4.8-10.8)
[2025-07-21 11:36] LABS: Urine Pregnancy, HCG Qual. Negative (Negative)
[2025-07-21 12:04] LABS: Albumin Level 5.4 g/dl (3.5-5.0); Chloride 101 mmol/L (98-107); Potassium 4.1 mmoL/L (3.5-5.1); Sodium 135 mmol/L (136-145)
[2025-07-21 12:07] LABS: Alanine Aminotransferase 13 U/L (12-78); Albumin/Globulin Ratio 3.2 (1.1-1.8); Alkaline Phosphatase 123 U/L (38-126); Anion Gap 10.1 mEq/L (5-15); Aspartate Amino Transferase 19 U/L (14-36); Bilirubin,Total 0.7 mg/dl (0.2-1.3); Calcium 8.8 mg/dl (8.4-10.2); Carbon Dioxide 28 mmol/L (22.0-30.0); Globulin 1.7 g/dL (1.3-3.2); Glucose 89 mg/dl (74-100); Total Protein,Serum 7.1 g/dl (6.3-8.2)
[2025-07-21 12:47] LABS: C-Reactive Protein < 0.3 mg/L (0-4)
[2025-07-21 13:03] LABS: Blood Urea Nitrogen 12 mg/dl (7-17); Creatinine,Serum 0.80 mg/dl (0.52-1.04); Estimated Glomerular Filt Rate 89 ml/min (>60); GFR (African American) 108 ML/MIN (>60)
== END 2025-07-21 23:59 | disposition home or self-care (01) ==
LOC: RAD 10:51
PROVIDERS: PCP Nurse Practitioner Family; Visit Provider Podiatrist
DX: Z01.812 Encounter for preprocedural laboratory examination (principal); D49.2 Neoplasm of unspecified behavior of bone, soft tissue, and skin; M72.2 Plantar fascial fibromatosis; M79.672 Pain in left foot; R93.6 Abnormal findings on diagnostic imaging of limbs
CPT/HCPCS: 36415; 73630; 76882; 80053; 81025; 85025; 85651; 86140

== ENCOUNTER 2025-07-27 09:16 | Outpatient (CLI) | payer OTHER, SELFPAY ==
--- OUTSIDE RECORDS SUMMARY | 2025-07-27 09:23 | XMS_ITS | Clinical Summary ---
Author Organization [employer] [facility] Address [address] [place] [address] Phone Care Team Providers Care Academic Director Name Role Phone Brown Horan MD Primary Care Physician [ ] Conditions or Problems Problem Name Problem Code Onset Date Status Entry Date Provider Comment Standard Description Annotate ADHD 712889478 (SNOMED CT) Active Brown Horan MD Attention deficit hyperactivity disorder SLEEP DISORDER 57143089 (SNOMED CT) Active Brown Horan MD Sleep disorder BEHAV- PROB LEARNING F81.9 (ICD-10-CM) Inactive Brown Horan MD Developmental disorder of scholastic skills, unspecified Medications Medication Instructions Start Date Stop Date Generic Name ND Provider ADDERALL 5 MG TABS 1 in am / 1 after lunch Dx:314.01 AMPHETAMINE-DEXTRO AMPHETAMINE [id number] Brown Horan MD ADDERALL XR 10 MG [id number] 1 in am Dx:314.01 AMPHETAMINE-DEXTRO AMPHETAMINE [id number] Brown Horan MD ADDERALL XR 10 MG [id number] 1 in am Dx:314.01 AMPHETAMINE-DEXTRO AMPHETAMINE [id number] Brown Horan MD Q-DRYL 25 MG ORAL CAPSULE 1-2 at bedtime DIPHENHYDRAMINE HCL [id number] Brown Horan MD Q-DRYL 25 MG ORAL CAPSULE 1-2 at [id number] DIPHENHYDRAMINE HCL [id number] Brown Horan MD Medications Administered No information available. Allergies, Adverse Reactions, Alerts Observed no known allergies at Results No information available. Plan of Care Type Date Detail Pending order Immunization(s) Ordered Pending order VFC FluMist Pending order VFC Flu 3 yrs an d older Pending order Flu 3 yrs and ol [place] Pending order Hep A pediatric- adolescent dosage- [...] Procedures Code Procedure Name Date Entry Date CPT-79692NEQ VFC FluMist IMMORDER Immunization(s) Ordered 2012 CPT-88667VJL VFC Flu 3 yrs and older 2012 CPT-40661 Flu 3 yrs and older CPT-16585 Hep A pediatric-adolescent dosage- 2 dose schedule CPT-24493 IMADM THROUGH 18YR ANY ROUTE 1ST VAC/TOXO ID IMMORDER Immunization(s) Ordered 2012 CPT-48474 TDaP age 7 yrs or older 2012 CPT-49845 IMADM THROUGH 18YR ANY ROUTE 1ST VAC/TOXO ID CPT-46326 IMADM THROUGH 18YR ANY ROUTE EA ADDL VAC/ TOXOID IMMORDER Immunization(s) Ordered 2011 CPT-60943 Varicella virus vaccine 2011 CPT-98654 Meningococcal conjugate vaccine 4 CPT-68508 IMADM THROUGH 18YR ANY ROUTE 1ST VAC/TOXO [...]
--- NOTE | 2025-07-27 09:30 | MR_ITS ---
FINAL REPORT CLINICAL HISTORY: evaluate soft tissue mass mass as been present x 2 months , hx of it being removed , pt stated keeps coming back 13 ml prohance COMPARISON: None FINDINGS: Multiplanar MR imaging of the left foot was performed with and without contrast. Bone marrow signal intensity is normal without edema, fracture or pathologic marrow replacement. Joint spaces are preserved. The Lisfranc joint is intact. The Lisfranc ligament is intact. The flexor and extensor tendons to the toes are intact. The Achilles tendon is intact. There is no joint effusion. Along the plantar aspect of the foot just deep to the marker placed at the area of abnormality, is a fusiform mass involving the plantar aponeurosis measuring 25 x 6 mm in the sagittal plane. There is some enhancement of the lesion along the superficial margin. No additional masses identified. Remainder of the soft tissues without acute abnormality. IMPRESSION: Superficial lesion along the plantar foot of the area of interest most consistent with fibroma arising from the plantar aponeurosis. No other abnormality identified. Reviewed, Interpreted and Dictated by Jade Carey MD Transcribed by Rosey Ocampo Authenticated and [facility]
[2025-07-27] MEDS: SODIUM CHLORIDE 0.9% 10ML SYR (RAD ONLY) 10 ML IV (10:20)
[2025-07-27] MEDS: GADOTERIDOL INJ 20ML SYRINGE 13 ML IV (10:20)
== END 2025-07-27 23:59 | disposition home or self-care (01) ==
LOC: RAD 09:16
PROVIDERS: PCP Nurse Practitioner Family; Visit Provider Podiatrist
DX: D48.5 Neoplasm of uncertain behavior of skin (principal); M72.2 Plantar fascial fibromatosis; R93.6 Abnormal findings on diagnostic imaging of limbs
CPT/HCPCS: 73720; A9576

== ENCOUNTER → 2025-08-02 09:56 | Day surgery (SDC) | payer OTHER, SELFPAY ==
[2025-08-01 13:01] VITALS: BMI 18.8
[2025-08-02] VITALS (10 sets, daily range): BP systolic 102–127; BP diastolic 50–71; PULSE 83–112; RESP 15–18; TEMP 36.6–36.9; O2SAT 96–100
[2025-08-02] MEDS: 0.9 % SODIUM CHLORIDE 1000ML 1,000 ML 25 ML IV (10:59)
[2025-08-02 11:03] LABS: Urine Pregnancy, HCG Qual. Negative (Negative)
[2025-08-02] MEDS: BUPIVACAINE 0.25% 30ML VIAL 75 MG (12:43)
--- NOTE | 2025-08-02 13:34 | P.PNANES_ITS ---
[facility] Disclaimer: The information contained in this section may have been updated after the patient was seen, as this information can be updated by other users. 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 On Depo-Provera for contraception HSV (herpes simplex virus) anogenital infection hemorrhage Surgical History History of Family History Other Family history of hypertension Social History (Updated 08/02/25 @ 10:40 by Inga Lee RN) Smoking Status: Current every day smoker second hand exposure: No alcohol intake: never substance use type: denies use current occupational status: unemployed Travel in the last 8 weeks?: None household members: family housing: house [facility] Anesthesia Checklist Patient Identification Patient Identification: Verbal (Name & ) Structural Data Admitted From: Home Planned Operative Procedure/s: excision neoplasm l foot Consent for Planned Operative Procedure(s) Verified: Yes NPO Status Verified Time NPO: 00:00 Additional verifications Anesthesia Reactions: No Hx Blood Transfusions: No Blood Transfusion Reaction: No Airway Assessment Mallampati Score:: Class II C-Spine Mobility Assessed: Yes TMJ Mobility Assessed: Yes Dentition: Partials Neurological Assessment Level of Consciousness: Awake, Alert and Appropriate Anesthesia Plan Anesthesia Risk discussed: Yes Anesthesia Plan: Verified ASA Class: II Anesthesia Type: General
--- NOTE | 2025-08-02 13:35 | P.PNANES_ITS ---
[facility] Anesthesia Record Part I Anesthesia Record I Intake, IV Amount: 1,600 Hydration: Adequate Estimated blood loss (mL): 0 Urine output (mL): 0 Blood Pressure: 127/56 SaO2: 96 Pulse Rate: 101 Airway Patency: Patent Respiratory Rate: 16 Temperature: 98 F Patient is:: Awake and Stable Stable to PACU at:: 13:30
--- NOTE | 2025-08-02 13:50 | EXP.OP.NOTE ---
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 Recent imaging reviewed. Discussed reports was unremarkable however when I went through the images with the patient and correlated clinically there was an area which correlated to her soft tissue mass/tumor on the plantar fascia notable. MRI sagittal series 12, images 16-17 there is an out pouching which clinically correlates to a palpable STM along medial plantar fascia consistent with fibroma. The patient has tried modification of activity/shoe gear, taping, U pads to offload, inserts, ice, elevation, NSAIDs, stretching. Based on this patient had surgery 12/07/24 for left foot soft tissue mass removal (plantar fibroma) and left foot lipoma removal both confirmed on pathology. Patient had an uneventful postoperative course with mild redness resolved with Bactrim. No full-thickness wound dehiscence. She had no issues for 4-5 months then reports increased neuritis and a knot slow-growing over the last 2 months. We discussed with soft tissue mass resection there is the possibility of recurrence. The concern is that the soft tissue mass is now larger than what I resected during her last surgery so doubt this is just scar tissue. Recommend advanced imaging to further evaluate and proceed with soft tissue mass biopsy/resection. Discussed the use of amniotic graft to prevent scar tissue and adhesion to incision. Discussed high risk of wound healing, infection, scar tissue contracture due to the revisional nature of the procedure. After a long discussion with the patient in regards to the conservative versus surgical treatment for the soft tissue mass deformity, the patient has elected to proceed with surgery because they have failed conservative treatment and continue to have pain and worsening symptoms affecting daily activities. The patient has been instructed on the planned procedure, common risk versus benefits of the procedure to include bleeding, infection, nerve and blood vessel damage, need for further surgery, incomplete removal of tumor, recurrence of tumor, delay in healing of soft tissue, prolonged/permanent pain and swelling, prolonged recovery, CRPS/RSD, DVT/PE and anesthetic complications including . Discussed increased risk of wound healing complications and infection due to vaping history. Smoking/vaping cessation given. Patient understands if there is wound complications, it could lead to infection warranting oral or IV antibiotics, wound necessitating debridement. No guarantees were given. All questions fully answered. The patient verbalized understanding and agreed to proceed with surgery. Verbal and written consent was obtained. Operative findings:: Previous surgical scar well healed with no signs of infection. Left foot lobulated palpable soft tissue mass noted over the medial band of the plantar fascia centrally at the arch. Post wide excisional biopsy/resection left foot excision tumor subfascial over and around the plantar fascia ~4 x 2cm, lobulated. The firm tissue superior and lateral to the suspected plantar fibroma appeared to be scar tissue. Scar tissue resected and sent for a margin for soft tissue biopsy. The proximal aspect of the mass included plantar fascia, so a piece of the plantar fascia ~1.0 x 0.3cm was transected performing a plantar fasciotomy. Both excised and sent for pathology. No deep signs of infection noted. *Clinical picture sent with pathology specimens. Operative note:: On this date and time patient was deemed an appropriate surgical candidate. With informed consent signed, the patient was taken to the operating theater. The patient was positioned supine. LMA anesthesia was induced. No tourniquet was utilized. Pre-op left ankle block given with 15 cc 0.5% marcaine plain. IV Ancef given. The left extremity was prepped and draped in normal sterile fashion. Left soft tissue tumor excision: Attention was directed to the plantar fascia where where a 4cm lobulated suspected fibroma was noted. Layered soft tissue dissection with care to maintain surgical hemostasis and safely track neurovascular structures. At the superior and inferior aspect of mass there was fibrotic scar tissue extending to the plantar fascia. 15 blade and forceps were used to sharply excise the suspected tumor/fibroma in total. It was located directly over and around the plantar fascia. The plantar fascia post resection was intact with some longitudinal tearing and mild herniation <1cm long at the medial central band. At proximal aspect of tumor, a piece of the plantar fascia was resected proximally in order to remove a part of the soft tissue mass. Essentially 15 blade was used to transect plantar fascia at the edge of the tumor, this was sent to pathology labeled plantar fascia/margin. Scar tissue resection, biopsy: Next located just superior and lateral to the fibroma, fibrotic scar tissue was identified directly over deep fascial layer. It was excised in total and sent to pathology as specimen for margin. No signs of infection. No nerve impingement appreciated. Wound was flushed with saline. Application of amniotic graft: Due to the recurrence of soft tissue tumor, extensive plantar fascia contraction, lack of subcutaneous tissue, post excision of the soft tissue masses and scar tissue there was not much coverage directly over the skin. A piece of amniotic tissue was laid over the plantar fascia in order to prevent adhesions and scarring of the fascia to the thin skin. Tourniquet not utilized. Bleeding controlled. Vessels ligated with electrocautery and tied as necessary. The wounds once again flushed with copious amounts of normal sterile saline. Monocryl was used to close subcutaneous tissue and a running fashion. Nylonl was then used to reapproximate the skin in a vertical mattress fashion. The wounds were cleansed. 15 cc 0.5% marcaine plain was injected at the end of the case around the incision and in an ankle block. Xeroform, Betadine soaked gauze, dry sterile dressing was then applied to the left foot. The patient was awoken from anesthesia and transferred to recovery with vital signs stable and neurovascular status intact. She appeared to tolerate procedure and anesthesia without complication. Materials: Palagin Amnio graft x 1 (4x4cm) Discharge/Plan: Ok to discharge home today when vss. Patient is to maintain dressing clean dry and intact. Elevate on two pillows. No weight bearing to the left lower extremity with fracture boot and DME assistance (crutches, walker, rolling knee scooter). Follow up in one week as previously scheduled for incision check and dressing change. Condition: stable Disposition: same day Specimens:: Left foot plantar fibroma Left foot plantar fascia Left foot plantar margin Complications:: None
[2025-08-02] MEDS: MORPHINE 2MG/ML SYRINGE 2 MG IV (13:56)
--- NOTE | 2025-08-02 14:07 | SUR.PHASEI ---
1400- Patient VSS and states that pain is much better after medication given. Sitting up in bed drinking ice water. 1401- Transferred to post-op phase 2. Detailed reported given to AMARILIS Reyes at bedside.
--- NOTE | 2025-08-02 16:18 | EXP.ANES.II ---
[facility] Anesthesia Record Part II Anesthesia Record Part II Discharge Time: 14:31 Destination: Surgical Day Care (OP Surgery) PACU nurse assessment reviewed?: Yes Patient Condition:: Good Anesthesia Complications:: None Swallowing reflex intact?: Yes Airway Patency: Patent Cyanosis?: No Blood Pressure: 118/54 SaO2: 100 Respiratory Rate: 18 Pulse Rate: 95 Temperature: 98.2 F Mental Status: Alert & Oriented Pain level:: 0 Nausea and/or vomitting:: None Intake, IV Amount: 0 Hydration: Adequate
== END | disposition home or self-care (01) ==
PROVIDERS: PCP Nurse Practitioner Family; Visit Provider Podiatrist
PROC: (CPT 15275; principal; 2025-08-02 11:45)
DX: M72.2 Plantar fascial fibromatosis (principal); G57.92 Unspecified mononeuropathy of left lower limb; L84 Corns and callosities; F41.9 Anxiety disorder, unspecified; M79.89 Other specified soft tissue disorders; Z98.890 Other specified postprocedural states
CPT/HCPCS: 15275; 28041; 81025; 96374; J0665; J0690; J1100; J1885; J2003; J2250; J2270; J2405; J2704; J3010; J7030; Q4173

== ENCOUNTER 2025-08-28 12:36 | Outpatient (CLI) | payer OTHER, SELFPAY | END 2025-08-28 23:59 | disposition home or self-care (01) | LOC: LAB 12:37 | PROVIDERS: PCP Nurse Practitioner Family; Visit Provider Obstetrics & Gynecology | DX: O99.891 Other specified diseases and conditions complicating pregnancy (principal); N93.9 Abnormal uterine and vaginal bleeding, unspecified; Z3A.01 Less than 8 weeks gestation of pregnancy | CPT/HCPCS: 36415; 84144; 84702 ==

== ENCOUNTER 2025-08-30 11:55 | Outpatient (CLI) | payer OTHER, SELFPAY | END 2025-08-30 23:59 | disposition home or self-care (01) | LOC: LAB 11:56 | PROVIDERS: PCP Nurse Practitioner Family; Visit Provider Obstetrics & Gynecology | DX: Z34.90 Encounter for supervision of normal pregnancy, unspecified, unspecified trimester (principal); Z3A.00 Weeks of gestation of pregnancy not specified | CPT/HCPCS: 36415; 84702 ==

== ENCOUNTER 2025-09-14 12:58 | Emergency (ER) | payer OTHER, SELFPAY ==
--- OUTSIDE RECORDS SUMMARY | 2025-09-14 13:07 | XMS_ITS | Clinical Summary ---
Author Organization [employer] [facility] Address [address] [place] [address] Phone Care Team Providers Care Case Hardener Name Role Phone Brown Horan MD Primary Care Physician [ ] Conditions or Problems Problem Name Problem Code Onset Date Status Entry Date Provider Comment Standard Description Annotate ADHD [id number] (SNOMED CT) Active Brown Horan MD Attention deficit hyperactivity disorder SLEEP DISORDER 70807462 (SNOMED CT) Active Brown Horan MD Sleep disorder BEHAV- PROB LEARNING F81.9 (ICD-10-CM) Inactive Brown Horan MD Developmental disorder of scholastic skills, unspecified Medications Medication Instructions Start Date Stop Date Generic Name ND Provider ADDERALL 5 MG TABS 1 in am / 1 after lunch Dx:314.01 AMPHETAMINE-DEXTRO AMPHETAMINE [id number] Brown Horan MD ADDERALL XR 10 MG [id number] 1 in am Dx:314.01 AMPHETAMINE-DEXTRO AMPHETAMINE [id number] Brown Horan MD ADDERALL XR 10 MG [id number] 1 in am Dx:314.01 AMPHETAMINE-DEXTRO AMPHETAMINE [id number] Brown Horan MD Q-DRYL 25 MG ORAL CAPSULE 1-2 at bedtime DIPHENHYDRAMINE HCL [id number] Brown Horan MD Q-DRYL 25 MG ORAL CAPSULE 1-2 at [id number] DIPHENHYDRAMINE HCL [id number] Brown Horan MD Medications Administered No information [...] Procedures Code Procedure Name Date Entry Date CPT-40113UTQ VFC FluMist IMMORDER Immunization(s) Ordered 2012 CPT-66094PNN VFC Flu 3 yrs and older 2012 CPT-99883 Flu 3 yrs and older CPT-78076 Hep A pediatric-adolescent dosage- 2 dose schedule CPT-98608 IMADM THROUGH 18YR ANY ROUTE 1ST VAC/TOXO ID IMMORDER Immunization(s) Ordered 2012 CPT-97749 TDaP age 7 yrs or older 2012 CPT-10330 IMADM THROUGH 18YR ANY ROUTE 1ST VAC/TOXO ID CPT-04861 IMADM THROUGH 18YR ANY ROUTE EA ADDL VAC/ TOXOID IMMORDER Immunization(s) Ordered 2011 CPT-34644 Varicella virus vaccine 2011 CPT-59963 Meningococcal conjugate vaccine 4 CPT-68964 IMADM THROUGH 18YR ANY ROUTE 1ST VAC/TOXO [...]
[2025-09-14 13:08] VITALS: BP 113/73; PULSE 93; O2SAT 94
[2025-09-14 13:09] VITALS: BP 113/73; PULSE 99; RESP 20; TEMP 36.8; O2SAT 100; BMI 18.3
--- NOTE | 2025-09-14 13:12 | HMH.EDGENADL ---
Discharge Plan Disposition Patient Disposition: Home, Self-Care Prescriptions Prescriptions: New nitrofurantoin macrocrystal 100 mg capsule 100 mg PO BID Qty: 10 0RF Rx Instructions: must administer with a meal/food No Action Classic 28 mg iron- 800 mcg tablet 1 tab PO DAILY promethazine 12.5 mg tablet 12.5 mg PO TID PRN (Reason: nausea and vomiting) Qty: 90 0RF Referrals Follow up/Referrals: Melissa Nieves DO [Staff Physician, EDUCATION ADVISER] - See instructions Marie Jewell APRN [Primary Care Provider, Medical] - See instructions Clinical Impressions Clinical Impression: UTI (urinary tract infection), , threatened Instructions Patient Instructions: DI for Urinary Tract Infection (UTI) Print Language Print Language: Upper Sorbian Discharge ED Provider: Ramon Hernandez General Adult HPI <Raegan Almanza APRN - Last Filed: 09/14/25 15:23> General Chief complaint: OB/Uterine Contractions Stated complaint: 8 weeks AP / Actively Bleeding Time Seen by Provider: 09/14/25 13:04 Mode of Arrival: Ambulatory Source of Information: Patient Description of Symptoms (Recalled from ER Triage Doc. by RN): Patient reports that she is approx 8 weeks and began bleeding approx 10 minutes ago. States she is unsure how much bleeding it is but states it is bright red. History of Present Illness HPI narrative: Hannah Ho is a 25-year-old female without significant past medical history who presents emergency room tonight with complaints of bleeding. Patient reports that she is a little over 8 weeks . 3 para 2, 2 prior C-sections. Is O+. No reports of dysuria. States her bleeding started approximately 10 to 15 minutes ago prior to arrival. No cramping, abdominal pain noted. No recent sexual intercourse. Denies any cough, fever, chest pain, shortness of breath. No issues with the previous 2 pregnancies. No other complaints at this time. Related Data Home Medications ?Medication ?Instructions ?Recorded ?Confirmed vits no.126-ferrous fum 1 tab PO DAILY 09/08/25 09/08/25 28 mg iron-folic acid 800 mcg tablet (Classic ) Previous Rx's ?Medication ?Instructions ?Recorded promethazine 12.5 mg tablet 12.5 mg PO TID PRN nausea and 09/08/25 vomiting #90 tabs nitrofurantoin macrocrystal 100 mg 100 mg PO BID #10 caps 09/14/25 capsule Allergies Allergy/AdvReac Type Severity Reaction Status Date / Time pineapple Allergy Swelling Verified 09/08/25 09:57 of Lip/Tongue/Throat [facility] <Raegan JF Almanza - Last Filed: 09/14/25 15:23> [facility] Disclaimer: The information contained in this section may have been updated after the patient was seen, as this information can be updated by other users. 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 HSV (herpes simplex virus) anogenital infection hemorrhage Surgical History (Updated 09/08/25 @ 10:17 by MAGDALENA Flower) H/O foot surgery History of Family History Other Family history of hypertension Social History (Updated 09/08/25 @ 10:17 by MAGDALENA Flower) Smoking Status: Current every day smoker tobacco type: e-cigarettes second hand exposure: No alcohol intake: never substance use type: denies use current occupational status: unemployed Travel in the last 8 weeks?: None household members: family housing: house Have you lived/traveled outside US in past 30 days?: No Contact w/someone who lives/traveled outside US past 30 days?: No Exposure to someone with infectious disease in past 14 days?: No Do you have a fever (greater than 100.4 F or 38 C)?: No Have you tested positive for COVID-19?: No Exposed to someone with COVID-19 in past 14 days?: No Do you have a sore throat?: No Do you have a cough?: No Do you have any weakness?: No Do you have any diarrhea?: No Are you experiencing any unusual bleeding?: No Do you have any muscle aches/pain?: No Do you have any abdominal pain?: No Are you experiencing loss of taste or smell?: No Other Medical History Have you received the Flu Vaccine for this season: No Have you received the Pneumonia Vaccine: No <Raegan Almanza, [employer] - Last Filed: 09/14/25 15:23> ROS Obtained: Yes All systems reviewed & no additional complaints except as documented Physical Exam <Raegan Pozoelena, [employer] - Last Filed: 09/14/25 15:23> General General appearance: alert and in no apparent distress Head Head exam: atraumatic, normocephalic and normal inspection Eye Eye exam: Present normal appearance, PERRL and EOMI ENT ENT exam: Present normal exam, normal oropharynx, mucous membranes moist, TM's normal bilaterally and normal external ear exam Neck Neck exam: Present normal inspection, full ROM and trachea midline; Absent meningismus or lymphadenopathy Chest Chest inspection: Present normal inspection and symmetric chest wall rise; Absent tenderness Respiratory Respiratory exam: Present normal lung sounds bilaterally; Absent respiratory distress Cardiovascular Cardiovascular exam: Present regular rate and normal rhythm; Absent JVD Abdominal Exam Abdominal exam: Present soft and normal bowel sounds; Absent distention, tenderness or guarding Extremities Exam Extremities exam: Present normal inspection, full ROM and normal capillary refill; Absent calf tenderness Back Exam Back exam: Present normal inspection; Absent tenderness Neurological Exam Neurological exam: Present alert and oriented X3 Psychiatric Psychiatric exam: Present normal affect and normal mood Skin Skin exam: Present warm, dry, intact and normal color Lymphatic Lymphatic Findings: no adenopathy Medical Decision Making <Raegan Pozoelena, [employer]CR[employer] - Last Filed: 09/14/25 15:23> Medical Records Screening: Per USPSTF and CDC recommendations, given the prevalence of disease in our region, it is our hospital?s policy to screen for HIV and viral Hepatitis for all patients aged 18 and over and those with ongoing risk factors. Arturo Inquiry Pt receiving controlled substance: No Vital Signs: 09/14/25 13:08 09/14/25 13:09 09/14/25 13:19 Temperature 98.3 F Temperature Source Oral Pulse Rate 93 H 101 H Pulse Rate [Radial] 99 H Respiratory Rate 20 Blood Pressure 113/73 Blood Pressure [Right Arm] 113/73 Blood Pressure Mean Blood Pressure Mean [Right Arm] 86 Blood Pressure Source Blood Pressure Source [Right Arm] Automatic Cuff Blood Pressure Position Blood Pressure Position [Right Arm] Sitting 02 Sat by Pulse Oximetry 94 L 100 100 Oxygen Delivery Method Room Air 09/14/25 13:30 09/14/25 14:33 Temperature 98.3 F Temperature Source Oral Pulse Rate 101 H Pulse Rate [Radial] Respiratory Rate 18 Blood Pressure 107/68 L 107/68 L Blood Pressure [Right Arm] Blood Pressure Mean 81 Blood Pressure Mean [Right Arm] Blood Pressure Source Automatic Cuff Blood Pressure Source [Right Arm] Blood Pressure Position Sitting Blood Pressure Position [Right Arm] 02 Sat by Pulse Oximetry Oxygen Delivery Method Room Air Lab Data Lab Results 09/14/25 13:01: Urine Color Yellow, Urine Appearance Sl cloudy, Urine pH 6.0, Ur Specific [place] >= 1.030, Urine Protein 1+ A, Urine Glucose (UA) Negative, Urine Ketones Trace, Urine Blood 3+ A, Urine Nitrate Negative, Urine Bilirubin 1+ A, Urine Urobilinogen 1.0, Ur Leukocyte Esterase Negative, Urine RBC 10-20, Urine WBC 5-10, Ur Squamous Epith Cells 5-10, Calcium Oxalate Crystal Trace, Urine Bacteria 1+, Urine Mucus 2+ 09/14/25 13:14: HCG, Quant [id number] H, HCV Ab MARION w/Rflx PCR Qn Negative, HIV Ag/Ab Combo Qual Negative Orders (Tests/Meds): ED MEDICATIONS Discontinued Medications Generic Name Dose Route Start Last Admin Trade Name Freq PRN Reason Stop Dose Admin Nitrofurantoin Macrocrystals 100 mg 09/14/25 14:23 09/14/25 14:27 Nitrofurantoin 100mg Capsule PO 09/14/25 14:24 100 mg ONCE ONE Administration ORDERS Category Date Time Status POCUS Point of Care (ER Only) Stat Exams 09/14/25 13:07 Completed HCG,Quantitative Stat Lab 09/14/25 13:14 Completed HIV Combo Stat Lab 09/14/25 13:14 Completed Hepatitis C Ab Qual. W/ RFX Stat Lab 09/14/25 13:14 Completed UA [Urinalysis and Microscopic] Stat Lab 09/14/25 13:01 Completed Medical Decision Narrative: In summary patient is an 25-year-old female who presents emergency department for evaluation of vaginal bleeding. Patient is 8 weeks . 3, para 2. 2 prior C-sections. O+ blood type. Follows with Dr. Robles with OB. Last appointment was 09/08. No dysuria. Blood is bright red, no clots present. Patient is hemodynamically stable upon arrival, afebrile. Unremarkable nonfocal physical exam. Differential diagnosis includes miscarriage, UTI, ectopic . Initial workup will be conducted with hematologic labs including a hCG quant and a UA. Initial workup reviewed by me included a [id number] ultrasound done by the ER physician, did show a live intrauterine as of today. UA did show 1+ bacteria. Beta quantitative at greater than 103,000. Upon repeat evaluation patient has not actually had any more vaginal bleeding at this time. No clots present. Given this patient appropriate for discharge. Patient will be discharged with prescription of Macrobid for 5 days. Will give her a dose in the ER today since there is no pharmacy open today. She will follow-up on Thursday with Dr. Robles's office. She was given return precautions to the ER. <Ramon Hernandez MD - Last Filed: 09/14/25 15:26> Vital Signs: 09/14/25 13:08 09/14/25 13:09 09/14/25 13:19 Temperature 98.3 F Temperature Source Oral Pulse Rate 93 H 101 H Pulse Rate [Radial] 99 H Respiratory Rate 20 Blood Pressure 113/73 Blood Pressure [Right Arm] 113/73 Blood Pressure Mean Blood Pressure Mean [Right Arm] 86 Blood Pressure Source Blood Pressure Source [Right Arm] Automatic Cuff Blood Pressure Position Blood Pressure Position [Right Arm] Sitting 02 Sat by Pulse Oximetry 94 L 100 100 Oxygen Delivery Method Room Air 09/14/25 13:30 09/14/25 14:33 Temperature 98.3 F Temperature Source Oral Pulse Rate 101 H Pulse Rate [Radial] Respiratory Rate 18 Blood Pressure 107/68 L 107/68 L Blood Pressure [Right Arm] Blood Pressure Mean 81 Blood Pressure Mean [Right Arm] Blood Pressure Source Automatic Cuff Blood Pressure Source [Right Arm] Blood Pressure Position Sitting Blood Pressure Position [Right Arm] 02 Sat by Pulse Oximetry Oxygen Delivery Method Room Air Lab Data Lab Results 09/14/25 13:01: Urine Color Yellow, Urine Appearance Sl cloudy, Urine pH 6.0, Ur Specific [place] >= 1.030, Urine Protein 1+ A, Urine Glucose (UA) Negative, Urine Ketones Trace, Urine Blood 3+ A, Urine Nitrate Negative, Urine Bilirubin 1+ A, Urine Urobilinogen 1.0, Ur Leukocyte Esterase Negative, Urine RBC 10-20, Urine WBC 5-10, Ur Squamous Epith Cells 5-10, Calcium Oxalate Crystal Trace, Urine Bacteria 1+, Urine Mucus 2+ 09/14/25 13:14: HCG, Quant [id number] H, HCV Ab MARION w/Rflx PCR Qn Negative, HIV Ag/Ab Combo Qual Negative Orders (Tests/Meds): ED MEDICATIONS Discontinued Medications Generic Name Dose Route Start Last Admin Trade Name Freq PRN Reason Stop Dose Admin Nitrofurantoin Macrocrystals 100 mg 09/14/25 14:23 09/14/25 14:27 Nitrofurantoin 100mg Capsule PO 09/14/25 14:24 100 mg ONCE ONE Administration ORDERS Category Date Time Status POCUS Point of Care (ER Only) Stat Exams 09/14/25 13:07 Completed HCG,Quantitative Stat Lab 09/14/25 13:14 Completed HIV Combo Stat Lab 09/14/25 13:14 Completed Hepatitis C Ab Qual. W/ RFX Stat Lab 09/14/25 13:14 Completed UA [Urinalysis and Microscopic] Stat Lab 09/14/25 13:01 Completed Medical Decision Narrative: In summary patient is an 25-year-old female who presents emergency department for evaluation of vaginal bleeding. Patient is 8 weeks . 3, para 2. 2 prior C-sections. O+ blood type. Follows with Dr. Robles with OB. Last appointment was 09/08. No dysuria. Blood is bright red, no clots present. Patient is hemodynamically stable upon arrival, afebrile. Unremarkable nonfocal physical exam. Differential diagnosis includes miscarriage, UTI, ectopic . Initial workup will be conducted with hematologic labs including a hCG quant and a UA. Initial workup reviewed by me included a [id number] ultrasound done by the ER physician, did show a live intrauterine as of today. UA did show 1+ bacteria. Beta quantitative at greater than 103,000. Upon repeat evaluation patient has not actually had any more vaginal bleeding at this time. No clots present. Given this patient appropriate for discharge. Patient will be discharged with prescription of Macrobid for 5 days. Will give her a dose in the ER today since there is no pharmacy open today. She will follow-up on Thursday with Dr. Robles's office. She was given return precautions to the ER. Ramon Hernandez MD: I was consulted by the TEMO, and we discussed the complexity of the problems being addressed. I approved the treatment and management plan for this patient's care in the emergency department, thus performing a substantive portion of the medical decision making. I educated the patient on threatened and what this means. Patient will follow-up early next week with OB for continued care and was given return precautions. Procedure: Procedure performed was transabdominal uterine ultrasound. Procedure performed by Ramon Hernandez. Using the curvilinear probe images were obtained that show definitive intrauterine with positive heart activity. There are echogenic hypodensities about the uterus which I discussed the case with Dr. Goldberg these are normal and expected. Critical Care <Raegan Almanza, CONCR[employer] MASON - Last Filed: 09/14/25 15:23> Critical Care Time Critical Care Time: No
[2025-09-14 13:19] VITALS: PULSE 101; O2SAT 100
[2025-09-14 13:30] VITALS: BP 107/68
[2025-09-14 13:57] LABS: Microscopic, Urine URINE MICROSCOPIC (MICROSCOPIC)
[2025-09-14 14:02] LABS: Color,Urine YELLOW (Yellow); Glucose,Urine (UA) Negative (Negative); Ketones,Urine TRACE (Negative); Leukocyte Esterase,Urine Negative (Negative); PH,Urine 6.0 (5.0-8.5); Protein,Urine 1+ (Negative); Specific Gravity, Urine >= 1.030 (1.005-1.030); Urobilinogen,Urine 1.0 EU/dl (0.2)
[2025-09-14 14:06] LABS: Bilirubin,Urine 1+ (Negative)
[2025-09-14 14:13] LABS: Calcium Oxalate Crystals,Urine Trace /lpf
[2025-09-14 14:15] LABS: Bacteria,Urine 1+ /lpf; Mucus,Urine 2+ /lpf
[2025-09-14] MEDS: NITROFURANTOIN 100MG CAPSULE 100 MG PO (14:27)
[2025-09-14 14:33] VITALS: BP 107/68; PULSE 101; RESP 18; TEMP 36.8; O2SAT 100
[2025-09-14 14:49] LABS: Hepatitis C Ab Qual. W/ RFX NEGATIVE (Negative)
== END 2025-09-14 14:33 | disposition home or self-care (01) ==
PROVIDERS: Nurse Practitioner Acute Care; Emergency Provider Emergency Medicine; PCP Nurse Practitioner Family
DX: O20.9 Hemorrhage in early pregnancy, unspecified (principal); O23.41 Unspecified infection of urinary tract in pregnancy, first trimester; O99.331 Smoking (tobacco) complicating pregnancy, first trimester; Z3A.08 8 weeks gestation of pregnancy; F17.290 Nicotine dependence, other tobacco product, uncomplicated
CPT/HCPCS: 81001; 84702; 86803; 87389; 99284

== ENCOUNTER 2025-09-20 11:57 | Outpatient (CLI) | payer OTHER, SELFPAY ==
--- OUTSIDE RECORDS SUMMARY | 2025-09-20 11:59 | XMS_ITS | Clinical Summary ---
Author Organization [employer] [facility] Address [address] [place] [address] Phone Care Team Providers Care Director State Pharmacy Name Role Phone Brown Horan MD Primary Care Physician [ ] Conditions or Problems Problem Name Problem Code Onset Date Status Entry Date Provider Comment Standard Description Annotate ADHD 888633222 (SNOMED CT) Active Brown Horan MD Attention deficit hyperactivity disorder SLEEP DISORDER [id number] (SNOMED CT) Active Brown Horan MD Sleep disorder BEHAV- PROB LEARNING F81.9 (ICD-10-CM) Inactive Brown Horan MD Developmental disorder of scholastic skills, unspecified Medications Medication Instructions Start Date Stop Date Generic Name ND Provider ADDERALL 5 MG TABS 1 in am / 1 after lunch Dx:314.01 AMPHETAMINE-DEXTRO AMPHETAMINE [id number] Brown Horan MD ADDERALL XR 10 MG [id number] 1 in am Dx:314.01 AMPHETAMINE-DEXTRO AMPHETAMINE [id number] Brown Horan MD ADDERALL XR 10 MG [id number] 1 in am Dx:314.01 AMPHETAMINE-DEXTRO AMPHETAMINE [id number] Brown Horan MD Q-DRYL 25 MG ORAL CAPSULE 1-2 at bedtime DIPHENHYDRAMINE HCL [id number] Brown Horan MD Q-DRYL 25 MG ORAL CAPSULE 1-2 at [id number] DIPHENHYDRAMINE HCL [id number] Brown Horan MD Medications Administered No information [...] Procedures Code Procedure Name Date Entry Date CPT-54015OOO VFC FluMist IMMORDER Immunization(s) Ordered 2012 CPT-42468AGL VFC Flu 3 yrs and older 2012 CPT-42215 Flu 3 yrs and older CPT-96239 Hep A pediatric-adolescent dosage- 2 dose schedule CPT-78699 IMADM THROUGH 18YR ANY ROUTE 1ST VAC/TOXO ID IMMORDER Immunization(s) Ordered 2012 CPT-32177 TDaP age 7 yrs or older 2012 CPT-81815 IMADM THROUGH 18YR ANY ROUTE 1ST VAC/TOXO ID CPT-54541 IMADM THROUGH 18YR ANY ROUTE EA ADDL VAC/ TOXOID IMMORDER Immunization(s) Ordered 2011 CPT-66828 Varicella virus vaccine 2011 CPT-85126 Meningococcal conjugate vaccine 4 CPT-63660 IMADM THROUGH 18YR ANY ROUTE 1ST VAC/TOXO [...]
== END 2025-09-20 23:59 | disposition home or self-care (01) ==
LOC: LAB 11:58
PROVIDERS: PCP Nurse Practitioner Family; Visit Provider Obstetrics & Gynecology
DX: O20.0 Threatened abortion (principal)
CPT/HCPCS: 36415; 84702